=== PATIENT | female | born 1950 ===

== ENCOUNTER 2016-06-07 21:53 | Emergency (ER) | payer MEDICARE ==
[2016-06-07 22:17] VITALS: TEMP 98.3
[2016-06-07 22:54] LABS: BASO # 0.1 K/uL (0.0-0.2); BASO % 0.6 % (0.0-2.0); EOS # 0.2 K/uL (0.0-0.7); EOS % 2.1 % (0.0-4.0); HEMATOCRIT 42.1 % (34.0-47.0); LYMPH # 2.5 K/uL (1.0-4.3); LYMPH % 26.2 % (20.0-40.0); MEAN CELL VOLUME 89.6 fl (81.0-99.0); MEAN CORPUSCULAR HEMOGLOBIN 29.2 pg (27.0-31.0); MEAN CORPUSCULAR HGB CONC 32.6 g/dL (33.0-37.0); MEAN PLATELET VOLUME 9.1 fl (7.2-11.7); MONO # 0.5 K/uL (0.0-0.8); MONO % 5.1 % (0.0-10.0); NEUT # 6.2 K/uL (1.8-7.0); NRBC % 0.1 % (0.0-0.0); RED CELL DISTRIBUTION WIDTH 14.3 % (11.5-14.5); WHITE BLOOD COUNT 9.4 K/uL (4.8-10.8)
[2016-06-07 23:00] VITALS: PULSE 60; RESP 18; O2SAT 98
[2016-06-07 23:00] LABS: ALB/GLOB RATIO 1.2 (1.0-2.1); ALKALINE PHOSPHATASE 116 U/L (38-126); ALT/SGPT 23 U/L (9-52); AST/SGOT 23 U/L (14-36); BILIRUBIN,TOTAL 0.4 mg/dl (0.2-1.3); BLOOD UREA NITROGEN 19 mg/dl (7-17); CALCIUM 8.9 mg/dL (8.4-10.2); CARBON DIOXIDE 27 mmol/L (22-30); CHLORIDE 103 mmol/L (98-107); GFR AFRICAN-AMERICAN > 60; GLUCOSE,RANDOM 119 mg/dL (65-105); POTASSIUM 3.4 MMOL/L (3.6-5.0); SODIUM 143 mmol/l (132-148); TOTAL PROTEIN 7.5 G/DL (6.3-8.2)
--- NOTE | 2016-06-07 23:09 | ED PDOC ---
Syncope/Near Syncope/Dizzyness Time Seen by Provider: 06/07/16 22:22 Chief Complaint (Nursing): Weakness/Neurological Deficit Chief Complaint (Provider): Fall/Head Injury History Per: Patient History/Exam Limitations: no limitations Onset/Duration Of Symptoms: Hrs Additional Complaint(s): 22:22 Ly Oscar is a 65 year old female with a history of atrial fibrillation, asthma, hypertension, COPD, arthritis, and gastritis that presents to the ED s/p fall. Patients states that she felt dizzy and fell as a result, at which point she hit her head on the wall. She reports that she initially experienced mild numbness to the tongue, but that it has since resolved. She denies any nausea, vomiting, chest pain, fever, shortness of breath, cough, or diarrhea, but does states that she has a mild headache. She denies having any palpitations during or before incident. Past Medical History Reviewed: Historical Data, Nursing Documentation, Vital Signs Vital Signs: Last Vital Signs Temp 98.3 F 06/07/16 22:15 Pulse 60 06/07/16 22:35 Resp 18 06/07/16 22:35 BP 152/69 H 06/07/16 22:35 Pulse Ox 98 06/07/16 22:35 - Medical History PMH: Arthritis, Asthma, Atrial Fibrillation (s/p ablation), Cardia Arrhythmia, Emphysema, Gastritis, Gastrointestinal Ulcer, HTN, Hypercholesterolemia, Hyperthyroidism Denies: Chronic Kidney Disease - Surgical History Surgical History: Appendectomy, Cholecystectomy, - Family History Family History: States: Unknown Family Hx - Immunization History Hx Tetanus Toxoid Vaccination: No Hx Influenza Vaccination: Yes Hx Pneumococcal Vaccination: Yes - Home Medications Home Medications: Ambulatory Orders Medication Instructions Recorded Aspirin [Ecotrin] 81 mg PO DAILY #30 ect 08/12/14 Metoprolol Succinate [Toprol XL] 100 mg PO DAILY #30 tab 08/12/14 Valsartan [Diovan] 80 mg PO DAILY #30 cap 08/12/14 Flecainide [Tambocor] 100 mg PO BID 09/18/14 Fluticasone Furoate [Arnuity 11/07/14 Ellipta] Cyclobenzaprine [Cyclobenzaprine 10 mg PO BID #14 tab 10/01/15 HCl] oxyCODONE/Acetaminophen [Percocet 1 ea PO Q6 PRN #10 tab 02/06/17 5/325 mg Tab] Famotidine [Pepcid] 20 mg PO BID #28 tab 04/27/16 - Allergies Allergies/Adverse Reactions: Allergies Allergy/AdvReac Type Severity Reaction Status Date / Time iodine Allergy ANAPHYLAXIS Verified 06/07/16 22:18 lactose Allergy ANGIOEDEMA Verified 06/07/16 22:18 Penicillins Allergy ANAPHYLAXIS Verified 06/07/16 22:18 Review of Systems Constitutional: Negative for: Fever Cardiovascular: Negative for: Chest Pain Respiratory: Negative for: Cough, Shortness of Breath Gastrointestinal: Negative for: Nausea, Vomiting, Diarrhea Neurological: Positive for: Headache (mild) Physical Exam - Reviewed Nursing Documentation Reviewed: Yes Vital Signs Reviewed: Yes - Physical Exam Appears: Positive for: Non-toxic, No Acute Distress Head Exam: Positive for: ATRAUMATIC, NORMOCEPHALIC Skin: Positive for: Normal Color, Warm Eye Exam: Positive for: Normal appearance, EOMI Cardiovascular/Chest: Positive for: Regular Rate, Rhythm. Negative for: Murmur Respiratory: Positive for: Normal Breath Sounds. Negative for: Respiratory Distress Gastrointestinal/Abdominal: Positive for: Soft. Negative for: Tenderness Extremity: Positive for: Normal ROM Neurologic/Psych: Positive for: Alert, Oriented - Laboratory Results Result Diagrams: 06/07/16 22:36 06/07/16 22:36 - ECG O2 Sat by Pulse Oximetry: 98 (RA) Pulse Ox Interpretation: Normal Medical Decision Making Medical Decision Makin:30 Initial Impression: 65 y/o female s/p fall and head injury Initial Plan: * CT Head w/o contrast * EKG * CBC * PTT * PT * Accucheck * Reevaluation Labs reviewed demonstrate no clinically significant abnormalities Patient remains asymptomatic in ED. she is stable on dc Dx Dizziness, Head Injury FU PCP 2 days Scribe Attestation: Documented by Carmen Buckley, acting as a scribe for Luke Kaur MD Provider Scribe Attestation: All medical record entries made by the Scribe were at my direction and personally dictated by me. I have reviewed the chart and agree that the record accurately reflects my personal performance of the history, physical exam, medical decision making, and the department course for this patient. I have also personally directed, reviewed, and agree with the discharge instructions and disposition. Disposition - Clinical Impression Clinical Impression: Dizziness - Patient ED Disposition Is Patient to be Admitted: No - Disposition Disposition: Routine/Home Disposition Time: 01:00 Condition: STABLE
[2016-06-07 23:13] LABS: PARTIAL THROMBOPLASTIN TIME 29.8 SECONDS (23.3-32.5)
--- NOTE | 2016-06-08 01:11 | CT ---
EXAM: CT Head Without Intravenous Contrast. CLINICAL HISTORY: 65 years old, female; Pain; Headache; Tension TECHNIQUE: Axial computed tomography images of the head/brain without intravenous contrast. This CT exam was performed using one or more of the following dose reduction techniques: automated exposure control, adjustment of the mA and/or kV according to patient size, and/or use of iterative reconstruction technique. Coronal and sagittal reformatted images were created and reviewed. COMPARISON: No relevant prior studies available. FINDINGS: Brain: No hemorrhage. No edema. Bilateral periventricular white matter hypoattenuation most consistent with chronic ischemic small vessel changes. Hypoattenuating focus in the right cerebellum, question prior infarct. Prominence of cisterna magna. Streak artifact limits evaluation of of the inferior brain. Ventricles: No hydrocephalus. Bones: Skull is intact. Sinuses: No acute sinusitis. Mastoid air cells: No mastoid effusion. IMPRESSION: No CT evidence of acute intracranial abnormality. Chronic changes as above.
[2016-06-08 02:02] VITALS: BP 153/93
--- NOTE | 2016-06-08 10:47 | CARD ---
APPROVED REPORT EKG Measurement Heart [id number] <Conclusion> Sinus rhythm with 1st degree AV block Otherwise normal ECG
== END 2016-06-08 02:02 | disposition home or self-care (01) ==
LOC: H.ER 21:53
DX: R42 Dizziness and giddiness (principal); S09.90XA Unspecified injury of head, initial encounter; W19.XXXA Unspecified fall, initial encounter; Y92.89 Other specified places as the place of occurrence of the external cause; E78.00 Pure hypercholesterolemia, unspecified; I10 Essential (primary) hypertension; Z79.82 Long term (current) use of aspirin

== ENCOUNTER 2017-02-21 16:17 | Observation (INO) | payer MEDICARE ==
[2017-02-21 17:57] LABS: BASO # 0.1 K/uL (0.0-0.2); BASO % 0.8 % (0.0-2.0); EOS # 0.2 K/uL (0.0-0.7); EOS % 1.9 % (0.0-4.0); HEMATOCRIT 43.6 % (34.0-47.0); LYMPH # 2.2 K/uL (1.0-4.3); LYMPH % 22.2 % (20.0-40.0); MEAN CELL VOLUME 89.6 fl (81.0-99.0); MEAN CORPUSCULAR HGB CONC 32.4 g/dL (33.0-37.0); MEAN PLATELET VOLUME 9.5 fl (7.2-11.7); MONO # 0.6 K/uL (0.0-0.8); MONO % 6.2 % (0.0-10.0); NEUT # 6.8 K/uL (1.8-7.0); NEUT % 68.9 % (50.0-75.0); NRBC % 0.5 % (0.0-0.0); RED CELL DISTRIBUTION WIDTH 14.5 % (11.5-14.5); WHITE BLOOD COUNT 9.9 K/uL (4.8-10.8)
[2017-02-21 18:06] LABS: CALCIUM 9.6 mg/dL (8.4-10.2); CARBON DIOXIDE 28 mmol/L (22-30); CHLORIDE 105 mmol/L (98-107); GFR AFRICAN-AMERICAN > 60; GLUCOSE,RANDOM 92 mg/dL (65-105); SODIUM 142 mmol/l (132-148)
[2017-02-21 18:16] LABS: ALB/GLOB RATIO 1.2 (1.0-2.1); ALKALINE PHOSPHATASE 113 U/L (38-126); ALT/SGPT 30 U/L (9-52); AST/SGOT 31 U/L (14-36); BLOOD UREA NITROGEN 20 mg/dl (7-17); POTASSIUM 4.9 MMOL/L (3.6-5.0); TOTAL PROTEIN 7.8 G/DL (6.3-8.2)
--- NOTE | 2017-02-21 18:32 | ED PDOC ---
HPI: General Adult Time Seen by Provider: 02/21/17 17:01 Chief Complaint (Nursing): Chest Pain History Per: Patient Additional Complaint(s): Pt. states for the past 3 days she's had non-radiating mid-sternal chest pain. Reports pain is constant but gets worse spontaneously. States that at 0300 this morning the chest pain woke her up from sleep. Pt. states her 3 days ago. Reports that she initially thought it was due to anxiety but there are moments when she is completely relaxed and pain is still present. Denies numbness, tingling, trauma, fever, cough, SOB, back pain. Of note, pt. was seen by Dr. Dorman earlier today and instructed to come to ED for further evaluation. Past Medical History Reviewed: Historical Data, Nursing Documentation, Vital Signs Vital Signs: Last Vital Signs Temp 98 F 02/21/17 16:22 Pulse 67 02/21/17 20:05 Resp 16 02/21/17 16:22 BP 147/77 02/21/17 16:22 Pulse Ox 96 02/21/17 20:05 - Medical History PMH: Arthritis, Asthma, Atrial Fibrillation (s/p ablation), Cardia Arrhythmia, Emphysema, Gastritis, Gastrointestinal Ulcer, HTN, Hypercholesterolemia, Hyperthyroidism Denies: Chronic Kidney Disease - Surgical History Surgical History: Appendectomy, Cholecystectomy, - Family History Family History: States: No Known Family Hx - Immunization History Hx Tetanus Toxoid Vaccination: No Hx Influenza Vaccination: Yes Hx Pneumococcal Vaccination: Yes - Home Medications Home Medications: Ambulatory Orders Medication Instructions Recorded Albuterol HFA [Ventolin HFA 90 2 puff IH Q4H PRN 02/21/17 mcg/actuation (8 g)] Famotidine [Pepcid] 20 mg PO DAILY PRN 02/21/17 Flecainide Acetate [Flecainide 150 mg PO Q12H 02/21/17 Acetate] Fluticasone/Vilanterol [Breo 1 puff IH DAILY 02/21/17 Ellipta 200-25 Mcg INH] Metoprolol Succinate [Toprol XL] 100 mg PO DAILY 02/21/17 Montelukast [Singulair] 10 mg PO HS 02/21/17 Valsartan [Diovan] 160 mg PO DAILY 02/21/17 amLODIPine [Norvasc] 5 mg PO HS 02/21/17 - Allergies Allergies/Adverse Reactions: Allergies Allergy/AdvReac Type Severity Reaction Status Date / Time iodine Allergy ANAPHYLAXIS Verified 02/21/17 16:22 lactose Allergy ANGIOEDEMA Verified 02/21/17 16:22 Review of Systems ROS Statement: Except As Marked, All Systems Reviewed And Found Negative Cardiovascular: Positive for: Chest Pain Physical Exam - Reviewed Nursing Documentation Reviewed: Yes Vital Signs Reviewed: Yes - Physical Exam Appears: Positive for: Well, Non-toxic, No Acute Distress Head Exam: Positive for: ATRAUMATIC, NORMAL INSPECTION, NORMOCEPHALIC Skin: Positive for: Normal Color, Warm. Negative for: Rash Eye Exam: Positive for: EOMI, Normal appearance, PERRL ENT: Positive for: Normal ENT Inspection Neck: Positive for: Normal, Painless ROM Cardiovascular/Chest: Positive for: Regular Rate, Rhythm Respiratory: Positive for: CNT, Normal Breath Sounds Gastrointestinal/Abdominal: Positive for: Normal Exam, Bowel Sounds, Soft. Negative for: Tenderness Back: Positive for: Normal Inspection Extremity: Positive for: Normal ROM Neurologic/Psych: Positive for: Alert, Oriented. Negative for: Aphasia, Facial Droop - Laboratory Results Result Diagrams: 02/21/17 17:48 02/21/17 17:48 - ECG ECG: Positive for: Interpreted By Me ECG Rhythm: Positive for: Sinus Rhythm. Negative for: ST/T Changes Rate: 67 O2 Sat by Pulse Oximetry: 96 - Radiology X-Ray: Interpreted by Me (CXR) X-Ray Interpretation: No Acute Disease - Progress ED Course And Treament: Labs ordered. IV line established. ASA PO 324mg PO chew ordered. Call placed to Dr. Dorman. Case d/w Dr. Sung and arrangements made for 23 hr tele observation. Medical Decision Making Medical Decision Making: Due to patient's PMHx and continuing chest pain she will be placed on 23 hr observation. Disposition - Clinical Impression Clinical Impression: Chest pain - Patient ED Disposition Is Patient to be Admitted: Yes - Disposition Disposition Time: 06:30 Condition: STABLE Forms: [facility] (German) - Pt Status Changed To: Hospital Disposition Of: Observation
--- NOTE | 2017-02-21 18:32 | RAD ---
HISTORY: chest pain COMPARISON: 04/22/2016 FINDINGS: LUNGS: No active pulmonary disease. PLEURA: No significant pleural effusion identified, no pneumothorax apparent. CARDIOVASCULAR: Normal. OSSEOUS STRUCTURES: No significant abnormalities. VISUALIZED UPPER ABDOMEN: Normal. OTHER FINDINGS: None. IMPRESSION: No active disease.
[2017-02-21] MEDS ORDERED: Albuterol HFA 90 mcg/actuation (8 g) IH PRN (20:31)
--- NOTE | 2017-02-21 20:31 | CP.PCM.HP ---
History of Present Illness - History of Present Illness History of Present Illness: CC: Chest pain History via family members in [place] HPI: This is a 66 y/o female with MHx significant for A fib s/p ablation, HTN, COPD/asthma, and ?thyroid disease who presents with now 2 days of CP. She states that she had some chest pain yesterday while at a wake for her who recently . She was feeling somewhat anxious at the time. She did not want to go to the hospital at the time, thinking it was just anxiety. Last night at 3 AM however, she was awoken from sleep with CP and so today she went into see her PCP, and he sent her to ER for further w/u. Patient denies radiation of pain. Denies SOB. May have had some palpitations and lightheadedness yesterday. Patient denies any f/c/n/v/d. ROS: 14 pt. ROS negative other than what is in HPI. MHx: A fib, HTN, COPD/Asthma, ?Gastritis, ?Thyroid disease SHx: Ablation for a fib (02/2014), Thyroid surgery, hysterectomy, c-sec x 4, appendectomy, cholecystectomy Allergies: Iodine, PCN, Lactose, Tape Medications: see below; patient states no rate control or anticoagulants currently Family Hx: There is family history of CAD/ND in mother Social Hx: Lives with family, denies EtOH, denies tobacco Surrogate Dec maker: Montez Oscar, son, Present on Admission - Present on Admission Any Indicators Present on Admission: No Past Patient History - Past Medical History & Family History Past Medical History?: Yes - Past Social History Smoking Status: Never Smoked - CARDIAC Hx Atrial Fibrillation: Yes (s/p ablation) Hx Cardia Arrhythmia: Yes Hx Hypercholesterolemia: Yes Hx Hypertension: Yes - PULMONARY Hx Asthma: Yes Hx Emphysema: Yes - NEUROLOGICAL Hx Neurological Disorder: No - HEENT Other/Comment: wear glasses for poor vision - RENAL Hx Chronic Kidney Disease: No - ENDOCRINE/METABOLIC Hx Hyperthyroidism: Yes - HEMATOLOGICAL/ONCOLOGICAL Hx Blood Disorders: No - INTEGUMENTARY Hx Dermatological Problems: Yes Hx Psoriasis: Yes - MUSCULOSKELETAL/RHEUMATOLOGICAL Hx Arthritis: Yes - GASTROINTESTINAL Hx Gastritis: Yes - GENITOURINARY/GYNECOLOGICAL Hx Genitourinary Disorders: No - PSYCHIATRIC Hx Psychophysiologic Disorder: No Hx Substance Use: No - SURGICAL HISTORY Hx Appendectomy: Yes Hx Cholecystectomy: Yes - ANESTHESIA Hx Anesthesia: Yes Hx Anesthesia Reactions: No Hx Malignant Hyperthermia: No Meds Allergies/Adverse Reactions: Allergies Allergy/AdvReac Type Severity Reaction Status Date / Time iodine Allergy ANAPHYLAXIS Verified 02/21/17 16:22 lactose Allergy ANGIOEDEMA Verified 02/21/17 16:22 Physical Exam - Constitutional Appears: No Acute Distress - Head Exam Head Exam: ATRAUMATIC, NORMOCEPHALIC - Eye Exam Eye Exam: EOMI, PERRL - ENT Exam ENT Exam: Mucous Membranes Dry - Neck Exam Neck exam: Positive for: Full Rom - Respiratory Exam Respiratory Exam: Clear to Auscultation Bilateral, NORMAL BREATHING PATTERN - Cardiovascular Exam Cardiovascular Exam: REGULAR RHYTHM, +S1, +S2 - GI/Abdominal Exam GI & Abdominal Exam: Normal Bowel Sounds, Soft - Extremities Exam Extremities exam: Positive for: full ROM, normal inspection - Neurological Exam Neurological exam: Alert, CN II-XII Intact, Oriented x3 - Psychiatric Exam Psychiatric exam: Normal Affect, Normal Mood - Skin Skin Exam: Dry, Warm Results - Vital Signs Recent Vital Signs: Last Vital Signs Temp 98 F 02/21/17 16:22 Pulse 67 02/21/17 20:20 Resp 16 02/21/17 16:22 BP 147/77 02/21/17 16:22 Pulse Ox 96 02/21/17 20:20 - Labs Result Diagrams: 02/21/17 17:48 02/21/17 17:48 Labs: Laboratory Results - last 24 hr 02/21/17 02/21/17 02/21/17 17:48 17:48 17:48 WBC 9.9 RBC 4.87 Hgb 14.1 Hct 43.6 MCV 89.6 MCH 29.0 MCHC 32.4 L RDW 14.5 Plt Count 234 MPV 9.5 Neut % (Auto) 68.9 Lymph % (Auto) 22.2 [place] % (Auto) 6.2 Eos % (Auto) 1.9 Baso % (Auto) 0.8 Neut # 6.8 Lymph # 2.2 [place] # 0.6 Eos # 0.2 Baso # 0.1 APTT 42.7 H Sodium 142 Potassium 4.9 Chloride 105 Carbon Dioxide 28 Anion Gap 14 BUN 20 H Creatinine 0.8 Est GFR ( Amer) > 60 Est GFR (Non-Af Amer) > 60 Random Glucose 92 Calcium 9.6 Total Bilirubin 1.0 AST 31 ALT 30 Alkaline Phosphatase 113 Troponin I 0.0150 Total Protein 7.8 Albumin 4.3 Globulin 3.5 Albumin/Globulin Ratio 1.2 - Imaging and Cardiology Chest x-ray Status: Image reviewed by me (no acute findings) Assessment & Plan (1) Chest pain Assessment and Plan: 66 y/o female with A fib and HTN among other conditions, presenting with CP. 1) Chest pain -Tele obs -Serial trops -AM EKG -Echo in AM -Consult Dr. Ramirez in AM -ASA 325 daily, SLNG for CP 2) A fib -Continue fleccanide (patient's own) -Cont metoprolol 3) HTN -- cont home BP medications 4) DVT PPx -- SQ Lovenox Status: Acute (2) A-fib Status: Acute (3) HTN (hypertension) Status: Chronic (4) DVT prophylaxis Status: Acute
[2017-02-21] MEDS: FLECAINIDE ACETATE 150 MG PO SCH (22:13)
[2017-02-21] MEDS ORDERED: Nitroglycerin 2% Ointment Foilpak UD TOP STA (23:09)
[2017-02-22 06:38] VITALS: PULSE 57
[2017-02-22 07:44] LABS: BASO % 0.4 % (0.0-2.0); EOS # 0.2 K/uL (0.0-0.7); EOS % 2.2 % (0.0-4.0); LYMPH # 2.1 K/uL (1.0-4.3); LYMPH % 26.6 % (20.0-40.0); MEAN CELL VOLUME 89.3 fl (81.0-99.0); MEAN CORPUSCULAR HEMOGLOBIN 28.8 pg (27.0-31.0); MEAN CORPUSCULAR HGB CONC 32.2 g/dL (33.0-37.0); MONO # 0.6 K/uL (0.0-0.8); NEUT # 5.1 K/uL (1.8-7.0); NEUT % 63.8 % (50.0-75.0); NRBC % 0.1 % (0.0-0.0); RED CELL DISTRIBUTION WIDTH 14.5 % (11.5-14.5)
[2017-02-22 07:46] LABS: BLOOD UREA NITROGEN 15 mg/dl (7-17); CARBON DIOXIDE 29 mmol/L (22-30); CHLORIDE 103 mmol/L (98-107); CHOLESTEROL 186 mg/dL (0-199); GFR AFRICAN-AMERICAN > 60; GLUCOSE,RANDOM 92 mg/dL (65-105); POTASSIUM 3.4 MMOL/L (3.6-5.0); SODIUM 141 mmol/l (132-148)
[2017-02-22 08:21] VITALS: BP 133/72; RESP 20; TEMP 97.3; O2SAT 96
[2017-02-22] MEDS: FLECAINIDE ACETATE 150 MG PO SCH (08:55)
--- NOTE | 2017-02-22 08:58 | CARD ---
APPROVED REPORT EKG Measurement Heart [id number] <Conclusion> Normal sinus rhythm Normal ECG
[2017-02-22] MEDS ORDERED: Metoprolol Succinate 100 mg XL Tab PO SCH (09:00)
[2017-02-22] MEDS ORDERED: Fluticasone-Salmeterol 250-50mcg Diskus IH SCH (09:00)
[2017-02-22] MEDS ORDERED: Enoxaparin 40 mg Syringe SC SCH (09:00)
--- NOTE | 2017-02-22 09:59 | CP.PCM.CON ---
History of Present Illness - History of Present Illness History of Present Illness: patietn seen/examined. full consult to follow. negative cardiac enzymes. chest pain likely in the setting of grief due to of her . d/c home today and outpatient follow up. Past Patient History - Past Medical History & Family History Past Medical History?: Yes - Past Social History Smoking Status: Never Smoked - CARDIAC Hx Cardiac Disorders: Yes Hx Atrial Fibrillation: Yes (s/p ablation) Hx Cardia Arrhythmia: Yes Hx Hypercholesterolemia: Yes Hx Hypertension: Yes - PULMONARY Hx Respiratory Disorders: Yes Hx Asthma: Yes Hx Emphysema: Yes - NEUROLOGICAL Hx Neurological Disorder: No - HEENT Hx HEENT Problems: No - RENAL Hx Chronic Kidney Disease: No - ENDOCRINE/METABOLIC Hx Endocrine Disorders: Yes Hx Hyperthyroidism: Yes - HEMATOLOGICAL/ONCOLOGICAL Hx Blood Disorders: No - INTEGUMENTARY Hx Dermatological Problems: Yes Hx Psoriasis: Yes - MUSCULOSKELETAL/RHEUMATOLOGICAL Hx Musculoskeletal Disorders: Yes Hx Arthritis: Yes Hx Falls: Yes - GASTROINTESTINAL Hx Gastrointestinal Disorders: Yes Hx Gastritis: Yes Hx Ulcer: Yes - GENITOURINARY/GYNECOLOGICAL Hx Genitourinary Disorders: No - PSYCHIATRIC Hx Psychophysiologic Disorder: No Hx Substance Use: No - SURGICAL HISTORY Hx Surgeries: Yes Hx Appendectomy: Yes Hx Section: Yes Hx Cholecystectomy: Yes Other/Comment: s/p cardiac ablation - ANESTHESIA Hx Anesthesia: Yes Hx Anesthesia Reactions: No Hx Malignant Hyperthermia: No Meds Allergies/Adverse Reactions: Allergies Allergy/AdvReac Type Severity Reaction Status Date / Time iodine Allergy ANAPHYLAXIS Verified 02/21/17 16:22 lactose Allergy ANGIOEDEMA Verified 02/21/17 16:22 - Medications Medications: Current Medications Acetaminophen (Tylenol 325mg Tab) 650 mg PO Q6 PRN PRN Reason: Headache Last Admin: 02/22/17 02:24 Dose: 650 mg Albuterol (Ventolin Hfa 90 Mcg/Actuation (8 G)) 2 puff IH Q4H PRN PRN Reason: Shortness of Breath Amlodipine Besylate (Norvasc) 5 mg PO HS [facility] Last Admin: 02/21/17 22:14 Dose: 5 mg Aspirin (Aspirin) 325 mg PO DAILY [facility] Last Admin: 02/22/17 08:56 Dose: 325 mg Enoxaparin Sodium (Lovenox) 40 mg SC DAILY [facility] PRN Reason: Protocol Last Admin: 02/22/17 08:53 Dose: 40 mg Famotidine (Pepcid) 20 mg PO DAILY PRN PRN Reason: Heartburn Last Admin: 02/22/17 08:54 Dose: 20 mg Home Med (Flecainide Acetate [Flecainide Acetate]) 150 mg PO Q12 [facility] Last Admin: 02/22/17 08:55 Dose: 150 mg Metoprolol Succinate (Toprol Xl) 100 mg PO DAILY [facility] Last Admin: 02/22/17 08:53 Dose: 100 mg Montelukast Sodium (Singulair) 10 mg PO HS [facility] Last Admin: 02/21/17 22:14 Dose: 10 mg Nitroglycerin (Nitrostat Sl Tab) 0.4 mg SL Q5M PRN PRN Reason: chest pain Fluticasone/Salmeterol (Advair Diskus 250/50) 1 puff IH Q12 [facility] Last Admin: 02/22/17 08:52 Dose: 1 puff Valsartan (Diovan) 160 mg PO DAILY [facility] Last Admin: 02/22/17 08:53 Dose: 160 mg Results - Vital Signs Recent Vital Signs: Last Vital Signs Temp 97.3 F L 02/22/17 08:21 Pulse 57 L 02/22/17 08:53 Resp 20 02/22/17 08:21 BP 133/72 02/22/17 08:53 Pulse Ox 96 02/22/17 08:21 - Labs Result Diagrams: 02/22/17 05:30 02/22/17 05:30 Labs: Laboratory Results - last 24 hr 02/21/17 02/21/17 02/21/17 17:48 17:48 17:48 WBC 9.9 RBC 4.87 Hgb 14.1 Hct 43.6 MCV 89.6 MCH 29.0 MCHC 32.4 L RDW 14.5 Plt Count 234 MPV 9.5 Neut % (Auto) 68.9 Lymph % (Auto) 22.2 [place] % (Auto) 6.2 Eos % (Auto) 1.9 Baso % (Auto) 0.8 Neut # 6.8 Lymph # 2.2 [place] # 0.6 Eos # 0.2 Baso # 0.1 APTT 42.7 H Sodium 142 Potassium 4.9 Chloride 105 Carbon Dioxide 28 Anion Gap 14 BUN 20 H Creatinine 0.8 Est GFR ( Amer) > 60 Est GFR (Non-Af Amer) > 60 Random Glucose 92 Calcium 9.6 Total Bilirubin 1.0 AST 31 ALT 30 Alkaline Phosphatase 113 Troponin I 0.0150 Total Protein 7.8 Albumin 4.3 Globulin 3.5 Albumin/Globulin Ratio 1.2 Triglycerides Cholesterol LDL Cholesterol Direct HDL Cholesterol 02/22/17 02/22/17 05:30 05:30 WBC 8.0 RBC 4.70 Hgb 13.5 Hct 42.0 MCV 89.3 MCH 28.8 MCHC 32.2 L RDW 14.5 Plt Count 217 MPV 9.0 Neut % (Auto) 63.8 Lymph % (Auto) 26.6 [place] % (Auto) 7.0 Eos % (Auto) 2.2 Baso % (Auto) 0.4 Neut # 5.1 Lymph # 2.1 [place] # 0.6 Eos # 0.2 Baso # 0.0 APTT Sodium 141 Potassium 3.4 L Chloride 103 Carbon Dioxide 29 Anion Gap 12 BUN 15 Creatinine 0.7 Est GFR ( Amer) > 60 Est GFR (Non-Af Amer) > 60 Random Glucose 92 Calcium 9.0 Total Bilirubin AST ALT Alkaline Phosphatase Troponin I < 0.0120 Total Protein Albumin Globulin Albumin/Globulin Ratio Triglycerides 99 Cholesterol 186 LDL Cholesterol Direct 72 HDL Cholesterol 78 H
--- NOTE | 2017-02-22 10:00 | CP.PCM.CON ---
Past Patient History - Past Medical History & Family History Past Medical History?: Yes - Past Social History Smoking Status: Never Smoked - CARDIAC Hx Cardiac Disorders: Yes Hx Atrial Fibrillation: Yes (s/p ablation) Hx Cardia Arrhythmia: Yes Hx Hypercholesterolemia: Yes Hx Hypertension: Yes - PULMONARY Hx Respiratory Disorders: Yes Hx Asthma: Yes Hx Emphysema: Yes - NEUROLOGICAL Hx Neurological Disorder: No - HEENT Hx HEENT Problems: No - RENAL Hx Chronic Kidney Disease: No - ENDOCRINE/METABOLIC Hx Endocrine Disorders: Yes Hx Hyperthyroidism: Yes - HEMATOLOGICAL/ONCOLOGICAL Hx Blood Disorders: No - INTEGUMENTARY Hx Dermatological Problems: Yes Hx Psoriasis: Yes - MUSCULOSKELETAL/RHEUMATOLOGICAL Hx Musculoskeletal Disorders: Yes Hx Arthritis: Yes Hx Falls: Yes - GASTROINTESTINAL Hx Gastrointestinal Disorders: Yes Hx Gastritis: Yes Hx Ulcer: Yes - GENITOURINARY/GYNECOLOGICAL Hx Genitourinary Disorders: No - PSYCHIATRIC Hx Psychophysiologic Disorder: No Hx Substance Use: No - SURGICAL HISTORY Hx Surgeries: Yes Hx Appendectomy: Yes Hx Section: Yes Hx Cholecystectomy: Yes Other/Comment: s/p cardiac ablation - ANESTHESIA Hx Anesthesia: Yes Hx Anesthesia Reactions: No Hx Malignant Hyperthermia: No Meds Allergies/Adverse Reactions: Allergies Allergy/AdvReac Type Severity Reaction Status Date / Time iodine Allergy ANAPHYLAXIS Verified 02/21/17 16:22 lactose Allergy ANGIOEDEMA Verified 02/21/17 16:22 - Medications Medications: Current Medications Acetaminophen (Tylenol 325mg Tab) 650 mg PO Q6 PRN PRN Reason: Headache Last Admin: 02/22/17 02:24 Dose: 650 mg Albuterol (Ventolin Hfa 90 Mcg/Actuation (8 G)) 2 puff IH Q4H PRN PRN Reason: Shortness of Breath Amlodipine Besylate (Norvasc) 5 mg PO HS [facility] Last Admin: 02/21/17 22:14 Dose: 5 mg Aspirin (Aspirin) 325 mg PO DAILY [facility] Last Admin: 02/22/17 08:56 Dose: 325 mg Enoxaparin Sodium (Lovenox) 40 mg SC DAILY [facility] PRN Reason: Protocol Last Admin: 02/22/17 08:53 Dose: 40 mg Famotidine (Pepcid) 20 mg PO DAILY PRN PRN Reason: Heartburn Last Admin: 02/22/17 08:54 Dose: 20 mg Home Med (Flecainide Acetate [Flecainide Acetate]) 150 mg PO Q12 [facility] Last Admin: 12/09/17 08:55 Dose: 150 mg Metoprolol Succinate (Toprol Xl) 100 mg PO DAILY [facility] Last Admin: 02/22/17 08:53 Dose: 100 mg Montelukast Sodium (Singulair) 10 mg PO HS [facility] Last Admin: 02/21/17 22:14 Dose: 10 mg Nitroglycerin (Nitrostat Sl Tab) 0.4 mg SL Q5M PRN PRN Reason: chest pain Fluticasone/Salmeterol (Advair Diskus 250/50) 1 puff IH Q12 [facility] Last Admin: 02/22/17 08:52 Dose: 1 puff Valsartan (Diovan) 160 mg PO DAILY [facility] Last Admin: 02/22/17 08:53 Dose: 160 mg Results - Vital Signs Recent Vital Signs: Last Vital Signs Temp 97.3 F L 02/22/17 08:21 Pulse 57 L 02/22/17 08:53 Resp 20 02/22/17 08:21 BP 133/72 02/22/17 08:53 Pulse Ox 96 02/22/17 08:21 - Labs Result Diagrams: 02/22/17 05:30 02/22/17 05:30 Labs: Laboratory Results - last 24 hr 02/21/17 02/21/17 02/21/17 17:48 17:48 17:48 WBC 9.9 RBC 4.87 Hgb 14.1 Hct 43.6 MCV 89.6 MCH 29.0 MCHC 32.4 L RDW 14.5 Plt Count 234 MPV 9.5 Neut % (Auto) 68.9 Lymph % (Auto) 22.2 [place] % (Auto) 6.2 Eos % (Auto) 1.9 Baso % (Auto) 0.8 Neut # 6.8 Lymph # 2.2 [place] # 0.6 Eos # 0.2 Baso # 0.1 APTT 42.7 H Sodium 142 Potassium 4.9 Chloride 105 Carbon Dioxide 28 Anion Gap 14 BUN 20 H Creatinine 0.8 Est GFR ( Amer) > 60 Est GFR (Non-Af Amer) > 60 Random Glucose 92 Calcium 9.6 Total Bilirubin 1.0 AST 31 ALT 30 Alkaline Phosphatase 113 Troponin I 0.0150 Total Protein 7.8 Albumin 4.3 Globulin 3.5 Albumin/Globulin Ratio 1.2 Triglycerides Cholesterol LDL Cholesterol Direct HDL Cholesterol 02/22/17 02/22/17 05:30 05:30 WBC 8.0 RBC 4.70 Hgb 13.5 Hct 42.0 MCV 89.3 MCH 28.8 MCHC 32.2 L RDW 14.5 Plt Count 217 MPV 9.0 Neut % (Auto) 63.8 Lymph % (Auto) 26.6 [place] % (Auto) 7.0 Eos % (Auto) 2.2 Baso % (Auto) 0.4 Neut # 5.1 Lymph # 2.1 [place] # 0.6 Eos # 0.2 Baso # 0.0 APTT Sodium 141 Potassium 3.4 L Chloride 103 Carbon Dioxide 29 Anion Gap 12 BUN 15 Creatinine 0.7 Est GFR ( Amer) > 60 Est GFR (Non-Af Amer) > 60 Random Glucose 92 Calcium 9.0 Total Bilirubin AST ALT Alkaline Phosphatase Troponin I < 0.0120 Total Protein Albumin Globulin Albumin/Globulin Ratio Triglycerides 99 Cholesterol 186 LDL Cholesterol Direct 72 HDL Cholesterol 78 H
--- NOTE | 2017-02-22 10:51 | CP.PCM.DIS ---
Provider - Provider Date of Admission: 02/21/17 20:32 Attending physician: Sola Sung MD Consults: Dr. Ramirez- cardiology Time Spent in preparation of Discharge (in minutes): 25 Hospital Course - Lab Results Lab Results: Most Recent Lab Values WBC 8.0 K/uL (4.8-10.8) 02/22/17 05:30 RBC 4.70 Mil/uL (3.80-5.20) 02/22/17 05:30 Hgb 13.5 g/dL (12.0-16.0) 02/22/17 05:30 Hct 42.0 % (34.0-47.0) 02/22/17 05:30 MCV 89.3 fl (81.0-99.0) 02/22/17 05:30 MCH 28.8 pg (27.0-31.0) 02/22/17 05:30 MCHC 32.2 g/dL (33.0-37.0) L 02/22/17 05:30 RDW 14.5 % (11.5-14.5) 02/22/17 05:30 Plt Count 217 K/uL (130-400) 02/22/17 05:30 MPV 9.0 fl (7.2-11.7) 02/22/17 05:30 Neut % (Auto) 63.8 % (50.0-75.0) 02/22/17 05:30 Lymph % (Auto) 26.6 % (20.0-40.0) 02/22/17 05:30 [place] % (Auto) 7.0 % (0.0-10.0) 02/22/17 05:30 Eos % (Auto) 2.2 % (0.0-4.0) 02/22/17 05:30 Baso % (Auto) 0.4 % (0.0-2.0) 02/22/17 05:30 Neut # 5.1 K/uL (1.8-7.0) 02/22/17 05:30 Lymph # 2.1 K/uL (1.0-4.3) 02/22/17 05:30 [place] # 0.6 K/uL (0.0-0.8) 02/22/17 05:30 Eos # 0.2 K/uL (0.0-0.7) 02/22/17 05:30 Baso # 0.0 K/uL (0.0-0.2) 02/22/17 05:30 APTT 42.7 Seconds (25.6-37.1) H 02/21/17 17:48 Sodium 141 mmol/l (132-148) 02/22/17 05:30 Potassium 3.4 MMOL/L (3.6-5.0) L 02/22/17 05:30 Chloride 103 mmol/L (98-107) 02/22/17 05:30 Carbon Dioxide 29 mmol/L (22-30) 02/22/17 05:30 Anion Gap 12 (10-20) 02/22/17 05:30 BUN 15 mg/dl (7-17) 02/22/17 05:30 Creatinine 0.7 mg/dl (0.7-1.2) 02/22/17 05:30 Est GFR ( Amer) > 60 02/22/17 05:30 Est GFR (Non-Af Amer) > 60 02/22/17 05:30 Random Glucose 92 mg/dL (65-105) 02/22/17 05:30 Calcium 9.0 mg/dL (8.4-10.2) 02/22/17 05:30 Total Bilirubin 1.0 mg/dl (0.2-1.3) 02/21/17 17:48 AST 31 U/L (14-36) 02/21/17 17:48 ALT 30 U/L (9-52) 02/21/17 17:48 Alkaline Phosphatase 113 U/L (38-126) 02/21/17 17:48 Troponin I < 0.0120 ng/mL (0.00-0.120) 02/22/17 05:30 Total Protein 7.8 G/DL (6.3-8.2) 02/21/17 17:48 Albumin 4.3 g/dL (3.5-5.0) 02/21/17 17:48 Globulin 3.5 gm/dL (2.2-3.9) 02/21/17 17:48 Albumin/Globulin Ratio 1.2 (1.0-2.1) 02/21/17 17:48 Triglycerides 99 mg/DL (0-149) 02/22/17 05:30 Cholesterol 186 mg/dL (0-199) 02/22/17 05:30 LDL Cholesterol Direct 72 mg/dL (0-129) 02/22/17 05:30 HDL Cholesterol 78 MG/DL (30-70) H 02/22/17 05:30 - Hospital Course Hospital Course: This is a 66 year old female with a past medical history significant for paroxysmal atrial fibrillation status post ablation, with previous admission for rapid ventricular response, hypothyroidism, hypertension, asthma, COPD, who initially presented to the emergency department with 2 days of chest pain. The patient states that she had some chest pain yesterday while at her 's wake. She admits to a lot of anxiety and grief as a result of sepsis. At 3 AM yesterday, the patient was awoken from sleep with chest pain and to go see her primary care physician. Her PCP sent her to the emergency department for further workup. In the ED, the patient was given aspirin and was placed on cardiovascular lab director. Telemetry shows normal sinus rhythm. The patient was subsequently admitted to telemetry on observation. Her second troponin is undetectable. EKG is unremarkable. She is now chest pain free after nitroglycerin administration. Dr. Ramirez was consulted, her advertising statistical clerk, who saw her this morning. He states that given the second troponin is negative the patient is stable for discharge to home at this time as her chest pain was likely secondary to grief and anxiety. She is to follow-up with him within the week for further outpatient workup. She is to take her home medications as prescribed. 1) Chest pain- now resolved - Troponins negative x 2 -EKG unremarkable - Dr. Ramirez saw pt on consultation- patient stable for discharge home today with outpatient f/u. 2) A fib -Continue flecanide, home medication -Cont metoprolol- home medication 3) HTN -- cont home BP medications 4) Asthma/COPD- continue inhaler prn along with Advair Discharge Exam - Additional Findings Additional findings: Physical exam: Constitutional- cooperative, awake, alert. Head- NCAT, PERRL Eye- PERRL, normal accommodation ENT- normal exam, MMM. Neck- normal inspection, supple, no JVD Respiratory- CTAB, no wheezes rales rhonchi Cardiovascular- RRR, +S1, +S2 no MRG GI/Abdominal- normal bowel sounds, soft, no mass, no hsm Skin- warm, dry Extremities Exam- normal capillary refill, normal inspection Neurological Exam- alert, stable gait Psych- normal mood, normal affect Discharge Plan - Follow Up Plan Condition: STABLE Disposition: HOME/ ROUTINE
--- NOTE | 2017-02-22 12:10 | CARD ---
APPROVED REPORT EXAM: Two-dimensional and M-mode echocardiogram with Doppler and color Doppler. Other Information Quality : AverageRhythm : NSR INDICATION Chest Pain 2D DIMENSIONS IVSd0.91 (0.7-1.1cm)LVDd4.58 (3.9-5.9cm) LVOT Diameter2.04 (1.8-2.4cm)PWd0.81 (0.7-1.1cm) IVSs1.14 (0.8-1.2cm)LVDs3.47 (2.5-4.0cm) FS (%) 24.1 %PWs1.08 (0.8-1.2cm) M-Mode DIMENSIONS Left Atrium (MM)4.20 (2.5-4.0cm)IVSd1.39 (0.7-1.1cm) Aortic Root2.94 (2.2-3.7cm)LVDd5.79 (4.0-5.6cm) Aortic Cusp Exc.2.12 (1.5-2.0cm)PWd1.09 (0.7-1.1cm) IVSs1.46 cmFS (%) 38 % LVDs3.57 (2.0-3.8cm)PWs1.56 cm Mitral Valve MV E Mcsnrpqp643.8cm/sMV DECEL UNOA271msPE A Fbvtvhvm93.1cm/s MV POI84hpG/A ratio1.7MVA (PHT)2.42cm2 TDI Lateral E' Peak V11.16cm/sMedial E' Peak V8.23cm/sE/Lateral E'9.6 E/Medial E'13.0 Tricuspid Valve TR Peak Uokjskfj771pf/sRAP VVQURDNI86yyZjXW Peak Gr.38mmHg [id number] LEFT VENTRICLE The left ventricle is normal size in. There is normal left ventricular wall thickness. The left ventricular function is normal. The left ventricular ejection fraction is 65-70%. There is normal LV segmental wall motion. Transmitral Doppler flow pattern is Grade I-abnormal relaxation pattern. No left ventricle thrombus noted on this study. There is no ventricular septal defect visualized. There is no left ventricular aneurysm. There is no mass noted in the left ventricle. RIGHT VENTRICLE The right ventricle is normal size. There is normal right ventricular wall thickness. The right ventricular systolic function is normal. ATRIA The left atrium is mildly dilated. There is no thrombus suspected in the left atrium. The right atrium size is normal. There is a small mid interatrial septal defect with left to right flow on color doppler studies that appears to be a patent foramen ovale(PFO). The flow velocity accross this PFO is - 1.7 meters/second. AORTIC VALVE The aortic valve is normal in structure. There is trace aortic regurgitation. There is no aortic valvular stenosis. MITRAL VALVE The mitral valve is normal in structure. There is no evidence of mitral valve prolapse. There is no mitral valve stenosis. Mitral regurgitation is mild. TRICUSPID VALVE The tricuspid valve is normal in structure. There is moderate tricuspid regurgitation. Right ventricular systolic pressure is estimated at 48 mmHg. There is no tricuspid valve prolapse or vegetation. There is no tricuspid valve stenosis. PULMONIC VALVE The pulmonic valve is not well visualized. Doppler studies of the PV were not performed. GREAT VESSELS The aortic root is normal in size. The IVC was not well visualized. PERICARDIAL EFFUSION The pericardium appears normal. There is no pleural effusion. <Conclusion> The left ventricle is normal in size and wall thickness. The left ventricular function is normal. The left ventricular ejection fraction is 65-70%. The left atrium is mildly dilated. The mitral, aortic and tricuspid valves are normal. There is mild mitral regurgitation, trace aortic regurgitation and moderate tricuspid regurgitation. There is a small mid interatrial septal defect with left to right flow on color doppler studies that appears to be a patent foramen ovale(PFO). The flow velocity accross this PFO is - 1.7 meters/second.
== END 2017-02-22 11:43 | disposition home or self-care (01) ==
LOC: H.ER 16:17 → H.ERHOLD 20:32 → H.TEL 21:29
PROVIDERS: ADMIT Internal Medicine; ATTEND Internal Medicine
DX: R07.89 Other chest pain (principal); E03.9 Hypothyroidism, unspecified; I48.0 Paroxysmal atrial fibrillation; J43.9 Emphysema, unspecified; Z79.82 Long term (current) use of aspirin; Z79.899 Other long term (current) drug therapy; Z82.49 Family history of ischemic heart disease and other diseases of the circulatory system; Z87.11 Personal history of peptic ulcer disease; Z90.49 Acquired absence of other specified parts of digestive tract; Z90.710 Acquired absence of both cervix and uterus; E05.90 Thyrotoxicosis, unspecified without thyrotoxic crisis or storm; K29.70 Gastritis, unspecified, without bleeding; L40.9 Psoriasis, unspecified; M19.90 Unspecified osteoarthritis, unspecified site; R07.2 Precordial pain; E78.00 Pure hypercholesterolemia, unspecified; F41.9 Anxiety disorder, unspecified; H54.7 Unspecified visual loss; I10 Essential (primary) hypertension
CPT/HCPCS: 36415; 71010; 80048; 80053; 80061; 84484; 85025; 85730; 93005; 93306; 99285; G0378; J1650; J2270

== ENCOUNTER 2017-06-01 12:11 | Emergency (ER) | payer MEDICARE ==
[2017-06-01] MEDS ORDERED: Albuterol-Ipratrop 3 mg / 0.5 (3 ml) UD INH STA (13:23)
--- NOTE | 2017-06-01 14:08 | RAD ---
PROCEDURE: CHEST RADIOGRAPH, 1 VIEW HISTORY: dyspnea COMPARISON: 02/21/2017 FINDINGS: LUNGS: No new focal infiltrate. PLEURA: No pneumothorax or pleural fluid seen. CARDIOVASCULAR: Cardiomegaly. Aorta is unchanged. Trachea is midline. No hilar enlargement is seen. OSSEOUS STRUCTURES: No significant abnormalities. VISUALIZED UPPER ABDOMEN: Normal. OTHER FINDINGS: None. IMPRESSION: Cardiomegaly. No new focal infiltrate. No CHF.
[2017-06-01] MEDS ORDERED: Albuterol-Ipratrop 3 mg / 0.5 (3 ml) UD ONE (14:31)
[2017-06-01 14:36] LABS: BASO % 0.5 % (0.0-2.0); EOS # 0.1 K/uL (0.0-0.7); EOS % 1.6 % (0.0-4.0); HEMOGLOBIN 13.6 g/dL (12.0-16.0); LYMPH # 2.3 K/uL (1.0-4.3); LYMPH % 26.6 % (20.0-40.0); MEAN CORPUSCULAR HEMOGLOBIN 29.5 pg (27.0-31.0); MEAN CORPUSCULAR HGB CONC 33.1 g/dL (33.0-37.0); MEAN PLATELET VOLUME 9.2 fl (7.2-11.7); MONO # 0.5 K/uL (0.0-0.8); MONO % 5.3 % (0.0-10.0); NEUT # 5.7 K/uL (1.8-7.0); NRBC % 0.1 % (0.0-0.0); RBC 4.62 Mil/uL (3.80-5.20); RED CELL DISTRIBUTION WIDTH 13.7 % (11.5-14.5); WHITE BLOOD COUNT 8.6 K/uL (4.8-10.8)
[2017-06-01 14:44] LABS: BLOOD UREA NITROGEN 14 mg/dl (7-17); CALCIUM 9.4 mg/dL (8.4-10.2); GFR AFRICAN-AMERICAN > 60; GFR NON-AFRICAN AMERICAN > 60
[2017-06-01 14:56] LABS: B-TYPE NATRIURETIC PEPTIDE 104 pg/ml (0-900)
--- NOTE | 2017-06-01 15:05 | ED PDOC ---
HPI: Influenza Time Seen by Provider: 06/01/17 12:56 Chief Complaint: Cough, Cold, Congestion Past Medical History Vital Signs: Last Vital Signs Temp 98.8 F 06/01/17 12:37 Pulse 60 06/01/17 12:37 Resp 20 06/01/17 12:37 BP 153/88 H 06/01/17 12:37 Pulse Ox 96 06/01/17 12:37 - Medical History PMH: Arthritis, Asthma, Atrial Fibrillation (s/p ablation), Cardia Arrhythmia, Emphysema, Gastritis, Gastrointestinal Ulcer, HTN, Hypercholesterolemia, Hyperthyroidism Denies: Chronic Kidney Disease - Surgical History Surgical History: Appendectomy, Cholecystectomy, - Family History Family History: States: Unknown Family Hx - Immunization History Hx Tetanus Toxoid Vaccination: No Hx Influenza Vaccination: Yes Hx Pneumococcal Vaccination: Yes - Home Medications Home Medications: Ambulatory Orders Medication Instructions Recorded Albuterol HFA [Ventolin HFA 90 2 puff IH Q4H PRN 02/21/17 mcg/actuation (8 g)] Famotidine [Pepcid] 20 mg PO DAILY PRN 02/21/17 Flecainide Acetate 150 mg PO Q12H 02/21/17 Fluticasone/Vilanterol [Breo 1 puff IH DAILY 02/21/17 Ellipta 200-25 Mcg INH] Metoprolol Succinate [Toprol XL] 100 mg PO DAILY 02/21/17 Montelukast [Singulair] 10 mg PO HS 02/21/17 Valsartan [Diovan] 160 mg PO DAILY 02/21/17 amLODIPine [Norvasc] 5 mg PO HS 02/21/17 - Allergies Allergies/Adverse Reactions: Allergies Allergy/AdvReac Type Severity Reaction Status Date / Time iodine Allergy ANAPHYLAXIS Verified 02/21/17 16:22 lactose Allergy ANGIOEDEMA Verified 02/21/17 16:22 - Laboratory Results Result Diagrams: 06/01/17 14:25 06/01/17 14:25 - ECG O2 Sat by Pulse Oximetry: 96 Disposition - Disposition
[2017-06-01 15:42] VITALS: BP 132/74; PULSE 85; RESP 17; TEMP 98.3; O2SAT 100
--- NOTE | 2017-06-01 15:52 | ED PDOC ---
HPI: Asthma Time Seen by Provider: 06/01/17 12:56 Chief Complaint (Nursing): Cough, Cold, Congestion Chief Complaint (Provider): Difficulty Breathing and Congestion History Per: Patient History/Exam Limitations: no limitations Onset/Duration Of Symptoms: Other (x2 weeks) Current Symptoms Are (Timing): Still Present Associated Symptoms: Dyspnea, Cough. denies: Fever, Chest Pain Additional Complaint(s): 89 year old female with a past medical history of asthma presents to the emergency department complaining of difficulty breathing, cough and congestion x2 weeks. Patient reports that he has been on antibiotics and takes her albuterol very randomly. Denies chest pain. Patient states that she has also had some bilateral leg swelling but that is getting better. Denies fevers, chills. PMD: Odell Garcia - Asthma History Control Medications: See Home Medication List Past Medical History Reviewed: Historical Data, Nursing Documentation, Vital Signs Vital Signs: Last Vital Signs Temp 98.3 F 06/01/17 15:42 Pulse 85 06/01/17 15:42 Resp 17 06/01/17 15:42 BP 132/74 06/01/17 15:42 Pulse Ox 100 06/01/17 15:42 - Medical History PMH: Arthritis, Asthma, Atrial Fibrillation (s/p ablation), Cardia Arrhythmia, Emphysema, Gastritis, Gastrointestinal Ulcer, HTN, Hypercholesterolemia, Hyperthyroidism Denies: Chronic Kidney Disease - Surgical History Surgical History: Appendectomy, Cholecystectomy, - Family History Family History: States: Unknown Family Hx - Social History Current smoker - smoking cessation education provided: No Ex-Smoker (has not smoked in the last 12 months): No Alcohol: None Drugs: Denies - Immunization History Hx Tetanus Toxoid Vaccination: No Hx Influenza Vaccination: Yes Hx Pneumococcal Vaccination: Yes - Home Medications Home Medications: Ambulatory Orders Medication Instructions Recorded Albuterol HFA [Ventolin HFA 90 2 puff IH Q4H PRN 02/21/17 mcg/actuation (8 g)] Famotidine [Pepcid] 20 mg PO DAILY PRN 02/21/17 Flecainide Acetate 150 mg PO Q12H 02/21/17 Fluticasone/Vilanterol [Breo 1 puff IH DAILY 02/21/17 Ellipta 200-25 Mcg INH] Metoprolol Succinate [Toprol XL] 100 mg PO DAILY 02/21/17 Montelukast [Singulair] 10 mg PO HS 02/21/17 Valsartan [Diovan] 160 mg PO DAILY 02/21/17 amLODIPine [Norvasc] 5 mg PO HS 02/21/17 Albuterol 0.083% [Albuterol 3 ml IH Q4 PRN #20 neb 06/01/17 Sulfate 3 Ml] Prednisone [Deltasone] 60 mg PO DAILY 5 Days tablet 06/01/17 - Allergies Allergies/Adverse Reactions: Allergies Allergy/AdvReac Type Severity Reaction Status Date / Time iodine Allergy ANAPHYLAXIS Verified 02/21/17 16:22 lactose Allergy ANGIOEDEMA Verified 02/21/17 16:22 Review of Systems ROS Statement: Except As Marked, All Systems Reviewed And Found Negative Constitutional: Negative for: Fever, Chills Cardiovascular: Negative for: Chest Pain (chest congestion) Respiratory: Positive for: Cough, Other (difficulty breathing). Negative for: Shortness of Breath Musculoskeletal: Positive for: Other (bilateral leg swelling) Physical Exam - Reviewed Nursing Documentation Reviewed: Yes Vital Signs Reviewed: Yes - Physical Exam Appears: Positive for: Non-toxic, No Acute Distress Head Exam: Positive for: ATRAUMATIC, NORMAL INSPECTION, NORMOCEPHALIC Skin: Positive for: Normal Color, Warm, Dry. Negative for: Rash Eye Exam: Positive for: Normal appearance, EOMI, PERRL. Negative for: Nystagmus ENT: Positive for: Normal ENT Inspection. Negative for: Tonsillar Exudate, Tonsillar Swelling Neck: Positive for: Normal, Painless ROM, Supple Cardiovascular/Chest: Positive for: Regular Rate, Rhythm, Chest Non Tender. Negative for: Tachycardia Respiratory: Positive for: Normal Breath Sounds. Negative for: Rales, Rhonchi, Wheezing, Respiratory Distress Gastrointestinal/Abdominal: Positive for: Normal Exam, Bowel Sounds, Soft. Negative for: Tenderness, Guarding, Rebound Back: Positive for: Normal Inspection. Negative for: L CVA Tenderness, R CVA Tenderness Extremity: Positive for: Normal ROM. Negative for: Tenderness, Deformity, Swelling Neurologic/Psych: Positive for: Alert, Oriented, Gait - Laboratory Results Result Diagrams: 06/01/17 14:25 06/01/17 14:25 - ECG O2 Sat by Pulse Oximetry: 100 (RA) Pulse Ox Interpretation: Normal - Progress Re-evaluation Time: 14:35 Condition: Re-examined, Improved Medical Decision Making Medical Decision Makin Initial Impression Asthma exacerbation r/o CHF Initial Plan: * EKG * B-type * Natriuretic * Troponin * CBC * CXR * Albuterol 3mL INH * Blood Culture * Peak Flow pre/post * Reevaluation 1407 PROCEDURE: CHEST RADIOGRAPH, 1 VIEW HISTORY: dyspnea COMPARISON: 02/21/2017 FINDINGS: LUNGS: No new focal infiltrate. PLEURA: No pneumothorax or pleural fluid seen. CARDIOVASCULAR: Cardiomegaly. Aorta is unchanged. Trachea is midline. No hilar enlargement is seen. OSSEOUS STRUCTURES: No significant abnormalities. VISUALIZED UPPER ABDOMEN: Normal. OTHER FINDINGS: None. IMPRESSION: Cardiomegaly. No new focal infiltrate. No CHF. Reeval- 1445 Patient feels better after treatment and will be discharged home. Documented by Desi Garza acting as a scribe for Fara Rangel MD. All medical record entries made by the Scribe were at my direction and personally dictated by me. I have reviewed the chart and agree that the record accurately reflects my personal performance of the history, physical exam, medical decision making, and the department course for this patient. I have also personally directed, reviewed, and agree with the discharge instructions and disposition. Disposition - Clinical Impression Clinical Impression: Asthma - Patient ED Disposition Is Patient to be Admitted: No Counseled Patient/Family Regarding: Studies Performed, Diagnosis - Disposition Referrals: [facility] [Outside] Disposition: Routine/Home Disposition Time: 14:45 Condition: GOOD Additional Instructions: Take your medications as instructed. Follow up with your PCP in 2-3 days. Prescriptions: Albuterol 0.083% [Albuterol Sulfate 3 Ml] 3 ml IH Q4 PRN #20 neb PRN Reason: Wheezing Prednisone [Deltasone] 60 mg PO DAILY 5 Days tablet Instructions: Asthma, Adult (DC) Print Language: [place] - POA Present On Arrival: None
--- NOTE | 2017-06-02 07:32 | CARD ---
APPROVED REPORT EKG Measurement Heart [id number] <Conclusion> Sinus rhythm Prolonged QT Abnormal ECG
== END 2017-06-01 15:45 | disposition home or self-care (01) ==
LOC: H.ER 12:11
DX: J45.909 Unspecified asthma, uncomplicated (principal); I10 Essential (primary) hypertension; J43.9 Emphysema, unspecified; Z87.891 Personal history of nicotine dependence; E05.90 Thyrotoxicosis, unspecified without thyrotoxic crisis or storm
CPT/HCPCS: 71045; 80048; 83880; 84484; 85025; 87040; 93005; 94640; 96374; 99283; J2930

== ENCOUNTER 2017-12-01 10:35 | Emergency (ER) | payer MEDICAID, MEDICARE ==
--- NOTE | 2017-12-01 11:08 | ED PDOC ---
Lower Extremity Pain/Injury Time Seen by Provider: 12/01/17 10:53 Chief Complaint (Provider): left knee pain and swelling History Per: Patient History/Exam Limitations: no limitations Onset/Duration Of Symptoms: Days (x1) Current Symptoms Are (Timing): Still Present Additional Complaint(s): Ly Oscar is a 67 year old female, with a past medical history of HTN , who presents to the emergency department complaining of left knee pain and swelling s/p trip and fall on steps last night. Patient reports pain and difficulty ambulating. Patient states she also injured the right side of back but no complaints at present time. No further medical complaints PMD: None provided - Knee Description Of Injury: Fell Past Medical History Reviewed: Historical Data, Nursing Documentation, Vital Signs - Medical History PMH: Arthritis, Asthma, Atrial Fibrillation (s/p ablation), Cardia Arrhythmia, Emphysema, Gastritis, Gastrointestinal Ulcer, HTN, Hypercholesterolemia, Hyperthyroidism Denies: Chronic Kidney Disease - Surgical History Surgical History: Appendectomy, Cholecystectomy, - Family History Family History: States: Unknown Family Hx - Immunization History Hx Tetanus Toxoid Vaccination: No Hx Influenza Vaccination: Yes Hx Pneumococcal Vaccination: Yes - Home Medications Home Medications: Ambulatory Orders Medication Instructions Recorded Albuterol HFA [Ventolin HFA 90 2 puff IH Q4H PRN 02/21/17 mcg/actuation (8 g)] Famotidine [Pepcid] 20 mg PO DAILY PRN 02/21/17 Flecainide Acetate 150 mg PO Q12H 02/21/17 Fluticasone/Vilanterol [Breo 1 puff IH DAILY 02/21/17 Ellipta 200-25 Mcg INH] Metoprolol Succinate XL [Toprol XL] 100 mg PO DAILY 02/21/17 Montelukast [Singulair] 10 mg PO HS 02/21/17 Valsartan [Diovan] 160 mg PO DAILY 02/21/17 amLODIPine [Norvasc] 5 mg PO HS 02/21/17 Albuterol 0.083% [Albuterol 3 ml IH Q4 PRN #20 neb 06/01/17 Sulfate 3 Ml] Prednisone [Deltasone] 60 mg PO DAILY 5 Days tablet 06/01/17 Naproxen [Naprosyn] 500 mg PO Q12H #20 tab 09/17/18 - Allergies Allergies/Adverse Reactions: Allergies Allergy/AdvReac Type Severity Reaction Status Date / Time iodine Allergy ANAPHYLAXIS Verified 02/21/17 16:22 lactose Allergy ANGIOEDEMA Verified 02/21/17 16:22 Review of Systems ROS Statement: Except As Marked, All Systems Reviewed And Found Negative Musculoskeletal: Positive for: Leg Pain (left knee) Physical Exam - Reviewed Nursing Documentation Reviewed: Yes Vital Signs Reviewed: Yes - Physical Exam Appears: Positive for: No Acute Distress Head Exam: Positive for: ATRAUMATIC, NORMOCEPHALIC Skin: Positive for: Normal Color, Warm, Dry Eye Exam: Positive for: Normal appearance Neck: Positive for: Painless ROM Extremity: Positive for: Normal ROM (full ROM), Tenderness (left knee mild tenderness), Swelling (Left knee mild swelling). Negative for: Deformity (left knee) Neurologic/Psych: Positive for: Alert, Oriented. Negative for: Motor/Sensory Deficits Medical Decision Making Medical Decision Making: Time: 10:53 Initial Plan: --Knee 3 views LT [RAD] --Reevaluation ----- Scribe Attestation: Documented by Frankie Del Toro, acting as a scribe for Jalen Logan MD. Provider Scribe Attestation: All medical record entries made by the Scribe were at my direction and personally dictated by me. I have reviewed the chart and agree that the record accurately reflects my personal performance of the history, physical exam, medical decision making, and the department course for this patient. I have also personally directed, reviewed, and agree with the discharge instructions and disposition. Disposition - Clinical Impression Clinical Impression: Knee sprain - Patient ED Disposition Is Patient to be Admitted: No Counseled Patient/Family Regarding: Studies Performed, Diagnosis, Need For Followup, Rx Given - Disposition Referrals: Leah Choi MD [Staff Provider] - Disposition: Routine/Home Disposition Time: 12:05 Condition: FAIR Prescriptions: Naproxen [Naprosyn] 500 mg PO Q12H #20 tab Instructions: Knee Sprain (DC) Print Language: GHANAIAN
[2017-12-01 11:49] VITALS: RESP 17
--- NOTE | 2017-12-01 11:57 | RAD ---
Date of service: 12/01/2017 PROCEDURE: Left Knee Radiographs. HISTORY: Posttraumatic left knee pain. COMPARISON: None. FINDINGS: BONES: Normal. No fracture. JOINTS: Normal. No osteoarthritis. JOINT EFFUSION: None. OTHER FINDINGS: None. IMPRESSION: No acute findings related to/accounting for the clinical presentation.
[2017-12-01 13:37] VITALS: BP 149/72; PULSE 60; TEMP 98.3; O2SAT 97
== END 2017-12-01 13:36 | disposition home or self-care (01) ==
LOC: H.ER 10:35
DX: S83.92XA Sprain of unspecified site of left knee, initial encounter (principal); W10.9XXA Fall (on) (from) unspecified stairs and steps, initial encounter

== ENCOUNTER 2018-04-06 18:22 | Observation (INO) | payer MEDICARE, OTHER ==
--- NOTE | 2018-04-06 19:08 | ED PDOC ---
HPI: Chest Pain Time Seen by Provider: 04/06/18 18:47 Chief Complaint (Nursing): Chest Pain Chief Complaint (Provider): chest pain History Per: Patient History/Exam Limitations: no limitations Additional Complaint(s): 67 y/o F with hx of Afib s/p ablation, HTN, asthma who presents with chest pain for the past 2 - 3 days. Pt states that she began having chest pain while performing ADLs a few days ago. She states that it has been intermittent since then and lasts up to 20 minutes. She has been taking Tylenol with some improvement in pain. She states that the pain is a tightness with some burning. Nothing worsens pain, such as change in position or deep breathing. States that she has been having some dizziness. Patient states that she is currently having some chest pain, rated 7/10 on pain scale. Denies N/V, SOB, epigastric pain, pleuritic chest pain. Past Medical History Reviewed: Historical Data, Nursing Documentation, Vital Signs Vital Signs: Last Vital Signs Temp 98.3 F 04/06/18 18:28 Pulse 64 04/06/18 18:28 Resp 18 04/06/18 18:28 BP 128/78 04/06/18 18:28 Pulse Ox 99 04/06/18 18:28 - Medical History PMH: Arthritis, Asthma, Atrial Fibrillation (s/p ablation), Cardia Arrhythmia, Emphysema, Gastritis, Gastrointestinal Ulcer, HTN, Hyperthyroidism Denies: Chronic Kidney Disease - Surgical History Surgical History: Appendectomy, Cholecystectomy, - Family History Family History: States: Unknown Family Hx - Immunization History Hx Tetanus Toxoid Vaccination: No Hx Influenza Vaccination: Yes Hx Pneumococcal Vaccination: Yes - Home Medications Home Medications: Ambulatory Orders Medication Instructions Recorded RX: Albuterol HFA [Ventolin HFA 90 2 puff IH Q4H PRN 02/21/17 mcg/actuation (8 g)] RX: Famotidine [Pepcid] 20 mg PO DAILY PRN 02/21/17 RX: Flecainide Acetate 150 mg PO Q12H 02/21/17 RX: Fluticasone/Vilanterol [Breo 1 puff IH DAILY 02/21/17 Ellipta 200-25 Mcg INH] RX: Metoprolol Succinate XL 100 mg PO DAILY 02/21/17 [Toprol XL] RX: Montelukast [Singulair] 10 mg PO HS 02/21/17 RX: Valsartan [Diovan] 160 mg PO DAILY 02/21/17 RX: amLODIPine [Norvasc] 5 mg PO HS 02/21/17 Albuterol 0.083% [Albuterol 3 ml IH Q4 PRN #20 neb 06/01/17 Sulfate 3 Ml] RX: Prednisone [Deltasone] 60 mg PO DAILY 5 Days tablet 06/01/17 Naproxen [Naprosyn] 500 mg PO Q12H #20 tab 12/01/17 - Allergies Allergies/Adverse Reactions: Allergies Allergy/AdvReac Type Severity Reaction Status Date / Time iodine Allergy ANAPHYLAXIS Verified 02/21/17 16:22 lactose Allergy ANGIOEDEMA Verified 02/21/17 16:22 GUANAKO Risk Score for UA/NSTEMI - GUANAKO Risk Score Age > 64: YES 3 or more CAD Risk Factors: YES Known CAD (Stenosis greater than 50%): NO Aspirin use in past 7 days: NO Severe Angina: NO EKG ST changes greater than 0.5mm: NO Positive Cardiac Marker: NO GUANAKO Score: 2 Risk %: 8% Wells Criteria for PE - Wells Criteria for Pulmonary Embolism Clinical Signs and Symptoms of DVT: No P.E is #1 Diagnosis, or Equally Likely: No Heart Rate >100: No Immobilization at least 3 days;Surgery previous 4 weeks: No Previous, objectively diagnosed PE or DVT: No Hemoptysis: No Malignancy w/treatment within 6 months, or palliative: No Total Score: 0 Physical Exam - Reviewed Nursing Documentation Reviewed: Yes Vital Signs Reviewed: Yes - Physical Exam Appears: Positive for: Non-toxic Head Exam: Positive for: ATRAUMATIC Cardiovascular/Chest: Positive for: Regular Rate, Rhythm, Murmur (II/ BRIAN heard best at LSB) Respiratory: Positive for: Normal Breath Sounds Gastrointestinal/Abdominal: Positive for: Normal Exam - Laboratory Results Result Diagrams: 04/06/18 19:00 04/06/18 19:40 - ECG O2 Sat by Pulse Oximetry: 99 Medical Decision Making Medical Decision Making: EKG CBC, CMP, Troponin CXR PA and lateral telemetry EKG 18:45: sinus, 1st degree AV block, HR 62, non-specific ST abnormality in inferior leads, no reciprocal changes. repeat EKG at 20:01: sinus, 1st degree AV block, HR 62, no change when compared with EKG from 18:45, pt continuing to have chest pain. CXR read by me: no active pulmonary disease. Pt endorsed to ALEXANDER Choi pending troponin result and re-evaluation. Disposition - Clinical Impression Clinical Impression: Chest pain - Patient ED Disposition Is Patient to be Admitted: Transfer of Care (ALEXANDER Choi) - Disposition Disposition: Transfer of Care Disposition Time: 20:10 Condition: FAIR Forms: [employer] (Emirati)
[2018-04-06 19:32] LABS: BASO % 0.4 % (0.0-2.0); EOS # 0.2 K/uL (0.0-0.7); EOS % 3.5 % (0.0-4.0); HEMOGLOBIN 13.9 g/dL (12.0-16.0); LYMPH # 2.1 K/uL (1.0-4.3); LYMPH % 31.1 % (20.0-40.0); MEAN CELL VOLUME 89.1 fl (81.0-99.0); MEAN CORPUSCULAR HEMOGLOBIN 29.5 pg (27.0-31.0); MEAN CORPUSCULAR HGB CONC 33.1 g/dL (33.0-37.0); MEAN PLATELET VOLUME 9.7 fl (7.2-11.7); MONO # 0.4 K/uL (0.0-0.8); MONO % 6.6 % (0.0-10.0); NEUT # 3.9 K/uL (1.8-7.0); NEUT % 58.4 % (50.0-75.0); RBC 4.72 Mil/uL (3.80-5.20); RED CELL DISTRIBUTION WIDTH 14.1 % (11.5-14.5); WHITE BLOOD COUNT 6.7 K/uL (4.8-10.8)
[2018-04-06 19:43] LABS: ALB/GLOB RATIO 1.2 (1.0-2.1); ALBUMIN 4.2 g/dL (3.5-5.0); ALT/SGPT 21 U/L (9-52); AST/SGOT 24 U/L (14-36); BLOOD UREA NITROGEN 18 mg/dl (7-17); CALCIUM 9.2 mg/dL (8.4-10.2); GFR NON-AFRICAN AMERICAN > 60
--- NOTE | 2018-04-06 20:41 | ED PDOC ---
- Laboratory Results Result Diagrams: 04/06/18 19:00 04/06/18 19:40 Lab Results: Troponin I < 0.0120 ng/mL (0.00-0.120) 04/06/18 19:40 Total Bilirubin 0.4 mg/dl (0.2-1.3) 04/06/18 19:40 AST 24 U/L (14-36) 04/06/18 19:40 ALT 21 U/L (9-52) 04/06/18 19:40 Alkaline Phosphatase 128 U/L (38-126) H 04/06/18 19:40 Total Protein 7.5 G/DL (6.3-8.2) 04/06/18 19:40 Albumin 4.2 g/dL (3.5-5.0) 04/06/18 19:40 Globulin 3.4 gm/dL (2.2-3.9) 04/06/18 19:40 Albumin/Globulin Ratio 1.2 (1.0-2.1) 04/06/18 19:40 - ECG O2 Sat by Pulse Oximetry: 99 Medical Decision Making Medical Decision Making: Patient received from previous physician. I concur with prior findings with additions as noted below. Data reviewed and patient disposition arranged as noted and discussed with patient and patient family. On re-evaluation, Pt indicated that she is often SOB with ALVAREZ after approximately 1/3 of a [place] block; her family also indicates that she sleeps in an easy chair sitting up at night and often has very swollen lower legs. I have ordered a BNP and coags, which were within acceptable clinical standards and presented no indication of clinical significant Based on clinical presentation, decision made to contact Hospitalist for admission to telemetry for R/O and observation; discussed case with Dr Sung, hospitalist, at 2200 who agreed to accept the patient in his service Disposition Discussed With : Sola Sung Doctor Will See Patient In The: Hospital Counseled Patient/Family Regarding: Studies Performed, Diagnosis - Clinical Impression Clinical Impression: Chest pain, Atypical chest pain - POA Present On Arrival: None - Disposition Disposition: Hospitalized as Observation Patient Disposition Time: 04:05 Condition: STABLE
[2018-04-06 21:33] LABS: PROTHROMBIN TIME 11.5 Seconds (9.8-13.1)
[2018-04-06 21:36] LABS: PARTIAL THROMBOPLASTIN TIME 41.8 Seconds (25.6-37.1)
[2018-04-06] MEDS ORDERED: Albuterol 0.083% Inhal Sol (2.5 mg/3 mL) UD IH PRN (22:35)
[2018-04-06] MEDS ORDERED: FLECAINIDE ACETATE 150 MG PO SCH (22:45)
--- NOTE | 2018-04-06 23:18 | CP.PCM.HP ---
History of Present Illness - History of Present Illness History of Present Illness: 67 y/o F with a PMHx of A-Fib, HTN, Asthma/Emphysema, OA presented to ED complaining of intermittent chest that began 2-3 days ago. Pain is described as brief episodes of [id number] sharp pain, last for second to a minute, occurs every few hours, resolves spontaneously, non-radiating, no precipitating factors, and NOT associated with diaphoresis or palpitations. Pt reports NO changes in her pulmonary function, her SOB is at baseline. No ill contacts. Pt denies fever, chills, nausea, vomiting, abdominal pain, wheezing, peripheral edema or rash. --On chart review: Echocardiogram on 02/22/17: LVEF 65-70%, small mid-interat rial septal defect with L-R shunt (possible PFO). --As per patient: last Echocardiogram was on 08/2017 and w/ unremarkable results, Holter monitor on 02/2018 with normal results, and cardiac stress test on 2016 with NO abnormalities. PCP: Odell Garcia Configuration Engineer: Dr Ramirez Allergies: lactose and iodine. Meds: Flecainide 150mg BID, Ellipta daily, Albuterol pump PRN, Metoprolol Succ 100mg PO daily, Norvasc 5 mg daily, Montelukast 10mg HS. -PMHx: A fib, HTN, COPD/Asthma, Osteoarthritis. -PSHx: Ablation for a fib (02/2014), Thyroid nodule resection, Hysterectomy, C- Section x 4, Appendectomy, Cholecystectomy -FHx: Mother at 80 y/o due to Stroke, had Hx of CAD/KS and cardiac issues. -SHx: Never smoker, no alcohol and no rec drugs. Surrogate Dec maker: Montez Oscar, son, At ED: --CBC and CMP were unremarkable. --Troponin negative x1. --Pro-BNP was WNL. --EKG and CXR reviewed: ->EKG preliminary showed sinus rhythm, 1st degree AV block, HR 62, possible ST abnormality in inferior leads, no changes in septal leads. ->CXR preliminary unremarkable, f/u final report. Present on Admission - Present on Admission Any Indicators Present on Admission: No Review of Systems - Constitutional Constitutional: absent: Chills, Fever - EENT Nose/Mouth/Throat: absent: Nasal Congestion, Odynophagia, Sore Throat, Neck Pain, Neck Mass - Cardiovascular Cardiovascular: Chest Pain. absent: Chest Pain with Activity, Dyspnea - Respiratory Respiratory: absent: Cough, Dyspnea, Hemoptysis - Gastrointestinal Gastrointestinal: absent: Abdominal Pain, Hematemesis, Nausea, Vomiting - Genitourinary Genitourinary: absent: Dysuria, Flank Pain, Hematuria, Pyuria Past Patient History - Past Medical History & Family History Past Medical History?: Yes - Past Social History Smoking Status: Never Smoked - CARDIAC Hx Atrial Fibrillation: Yes (s/p ablation) Hx Cardia Arrhythmia: Yes Hx Hypertension: Yes - PULMONARY Hx Asthma: Yes Hx Emphysema: Yes - NEUROLOGICAL Hx Neurological Disorder: No - HEENT Hx HEENT Problems: No - RENAL Hx Chronic Kidney Disease: No - ENDOCRINE/METABOLIC Hx Hyperthyroidism: Yes - HEMATOLOGICAL/ONCOLOGICAL Hx Blood Disorders: No - INTEGUMENTARY Hx Dermatological Problems: Yes Hx Psoriasis: Yes - MUSCULOSKELETAL/RHEUMATOLOGICAL Hx Arthritis: Yes - GASTROINTESTINAL Hx Gastritis: Yes - GENITOURINARY/GYNECOLOGICAL Hx Genitourinary Disorders: No - PSYCHIATRIC Hx Psychophysiologic Disorder: No Hx Substance Use: No - SURGICAL HISTORY Hx Appendectomy: Yes Hx Cholecystectomy: Yes - ANESTHESIA Hx Anesthesia: Yes Hx Anesthesia Reactions: No Hx Malignant Hyperthermia: No Meds Allergies/Adverse Reactions: Allergies Allergy/AdvReac Type Severity Reaction Status Date / Time iodine Allergy ANAPHYLAXIS Verified 02/21/17 16:22 lactose Allergy ANGIOEDEMA Verified 02/21/17 16:22 Physical Exam - Constitutional Appears: No Acute Distress - Head Exam Head Exam: ATRAUMATIC, NORMAL INSPECTION - Eye Exam Eye Exam: EOMI, Normal appearance - ENT Exam ENT Exam: Mucous Membranes Moist - Neck Exam Neck exam: Positive for: Full Rom, Normal Inspection - Respiratory Exam Respiratory Exam: NORMAL BREATHING PATTERN. absent: Rhonchi, Wheezes, Respiratory Distress - Cardiovascular Exam Cardiovascular Exam: REGULAR RHYTHM, +S1, +S2 - GI/Abdominal Exam GI & Abdominal Exam: Soft. absent: Guarding, Rebound, Rigid, Tenderness - Extremities Exam Extremities exam: Positive for: full ROM, normal inspection. Negative for: calf tenderness, pedal edema - Back Exam Back exam: absent: CVA tenderness (L), CVA tenderness (R) - Neurological Exam Neurological exam: Alert, Oriented x3 - Psychiatric Exam Psychiatric exam: Normal Affect, Normal Mood Results - Vital Signs Recent Vital Signs: Last Vital Signs Temp 98 F 04/06/18 19:28 Pulse 59 L 04/06/18 19:28 Resp 18 04/06/18 19:28 BP 125/54 L 04/06/18 19:28 Pulse Ox 99 04/06/18 22:04 - Labs Result Diagrams: 04/06/18 19:00 04/06/18 19:40 Labs: Laboratory Results - last 24 hr 04/06/18 04/06/18 04/06/18 19:00 19:40 21:11 WBC 6.7 RBC 4.72 Hgb 13.9 Hct 42.1 MCV 89.1 MCH 29.5 MCHC 33.1 RDW 14.1 Plt Count 207 MPV 9.7 Neut % (Auto) 58.4 Lymph % (Auto) 31.1 [place] % (Auto) 6.6 Eos % (Auto) 3.5 Baso % (Auto) 0.4 Neut # (Auto) 3.9 Lymph # (Auto) 2.1 [place] # (Auto) 0.4 Eos # (Auto) 0.2 Baso # (Auto) 0.0 PT INR APTT Sodium 140 Potassium 3.7 Chloride 100 Carbon Dioxide 29 Anion Gap 15 BUN 18 H Creatinine 0.9 Est GFR ( Amer) > 60 Est GFR (Non-Af Amer) > 60 Random Glucose 104 Calcium 9.2 Total Bilirubin 0.4 AST 24 ALT 21 Alkaline Phosphatase 128 H Troponin I < 0.0120 NT-Pro-B Natriuret Pep 120 Total Protein 7.5 Albumin 4.2 Globulin 3.4 Albumin/Globulin Ratio 1.2 04/06/18 21:11 WBC RBC Hgb Hct MCV MCH MCHC RDW Plt Count MPV Neut % (Auto) Lymph % (Auto) [place] % (Auto) Eos % (Auto) Baso % (Auto) Neut # (Auto) Lymph # (Auto) [place] # (Auto) Eos # (Auto) Baso # (Auto) PT 11.5 INR 1.0 APTT 41.8 H Sodium Potassium Chloride Carbon Dioxide Anion Gap BUN Creatinine Est GFR ( Amer) Est GFR (Non-Af Amer) Random Glucose Calcium Total Bilirubin AST ALT Alkaline Phosphatase Troponin I NT-Pro-B Natriuret Pep Total Protein Albumin Globulin Albumin/Globulin Ratio Assessment & Plan - Assessment and Plan (Free Text) Assessment: 67 y/o F with a PMHx of A-Fib, s/p cardiac ablation, HTN, Asthma/Emphysema, OA presented with 3 days Hx of brief episodes of chest pain. --Troponin negative x1 --Pro-BNP WNL. PLAN: >Chest pain --Stable, afebrile. --Need to rule out ACS --Admit to Telemetry --Cardiac monitoring --Cardiology consult, Dr Ramirez --Aspirin 325mg now, Nitroglycerin SL PRN for pain, Aspirin 81 mg daily. --Series of troponin Q6H x3 in total >HTN --Home medications resumed >A-Fib --Home medications resume --Cardiology consult, Dr Ramirez. >Asthma/COPD --Home medicatins resume --Albuterol INH PRN >DVT Prophylaxis --SCD's --Lovenox 40mg daily Case discussed with Patito Rouse PGY-2 - Date & Time Date: 04/06/18 Time: 22:30
[2018-04-07] MEDS ORDERED: Enoxaparin 40 mg Syringe SC SCH (09:00)
[2018-04-07] MEDS ORDERED: Patient's Own Med (Fluticasone/Vilanterol [Breo Ellipta 200-25 Mcg Inh] 1 PUFF) IH SCH (09:00)
[2018-04-07] MEDS ORDERED: Metoprolol Succinate 100 mg XL Tab PO SCH (09:00)
[2018-04-07] MEDS ORDERED: Fluticasone-Salmeterol 250-50mcg Diskus IH SCH (09:00)
--- NOTE | 2018-04-07 10:10 | RAD ---
Date of service: 04/06/2018 HISTORY: shortness of breath, cough COMPARISON: Chest radiograph dated 06/01/2017. TECHNIQUE: Chest PA and lateral FINDINGS: LUNGS: No active pulmonary disease. PLEURA: No significant pleural effusion identified. No pneumothorax apparent. CARDIOVASCULAR: Aortic atherosclerotic calcifications. Cardiomediastinal silhouette stably enlarged. OSSEOUS STRUCTURES: Unchanged. VISUALIZED UPPER ABDOMEN: Right upper quadrant surgical clips. OTHER FINDINGS: None. IMPRESSION: No active disease.
--- NOTE | 2018-04-07 10:11 | CP.PCM.DIS ---
<Nighat Arreaga - Last Filed: 04/07/18 11:31> Provider - Provider Date of Admission: 04/06/18 21:58 Attending physician: Sola Sung MD Primary care physician: PCP: Odell Garcai Senior Financial Reporting Accountant: Dr Ramirez Consults: 04/06/18 22:31 Cardiology Consult Routine Comment: Consulting Provider: Ramsey Ramirez Consulting Physician: Ramsey Ramirez Reason for Consult: Chest pain, R/O ACS 04/07/18 04:04 Pastoral Care Referral Routine Comment: Physician Instructions: Reason For Exam: new admission Time Spent in preparation of Discharge (in minutes): 30 Hospital Course - Lab Results Lab Results: Most Recent Lab Values WBC 6.7 K/uL (4.8-10.8) 04/06/18 19:00 RBC 4.72 Mil/uL (3.80-5.20) 04/06/18 19:00 Hgb 13.9 g/dL (12.0-16.0) 04/06/18 19:00 Hct 42.1 % (34.0-47.0) 04/06/18 19:00 MCV 89.1 fl (81.0-99.0) 04/06/18 19:00 MCH 29.5 pg (27.0-31.0) 04/06/18 19:00 MCHC 33.1 g/dL (33.0-37.0) 04/06/18 19:00 RDW 14.1 % (11.5-14.5) 04/06/18 19:00 Plt Count 207 K/uL (130-400) 04/06/18 19:00 MPV 9.7 fl (7.2-11.7) 04/06/18 19:00 Neut % (Auto) 58.4 % (50.0-75.0) 04/06/18 19:00 Lymph % (Auto) 31.1 % (20.0-40.0) 04/06/18 19:00 [place] % (Auto) 6.6 % (0.0-10.0) 04/06/18 19:00 Eos % (Auto) 3.5 % (0.0-4.0) 04/06/18 19:00 Baso % (Auto) 0.4 % (0.0-2.0) 04/06/18 19:00 Neut # (Auto) 3.9 K/uL (1.8-7.0) 04/06/18 19:00 Lymph # (Auto) 2.1 K/uL (1.0-4.3) 04/06/18 19:00 [place] # (Auto) 0.4 K/uL (0.0-0.8) 04/06/18 19:00 Eos # (Auto) 0.2 K/uL (0.0-0.7) 04/06/18 19:00 Baso # (Auto) 0.0 K/uL (0.0-0.2) 04/06/18 19:00 PT 11.5 Seconds (9.8-13.1) 04/06/18 21:11 INR 1.0 04/06/18 21:11 APTT 41.8 Seconds (25.6-37.1) H 04/06/18 21:11 Sodium 140 mmol/l (132-148) 04/06/18 19:40 Potassium 3.7 MMOL/L (3.6-5.0) 04/06/18 19:40 Chloride 100 mmol/L (98-107) 04/06/18 19:40 Carbon Dioxide 29 mmol/L (22-30) 04/06/18 19:40 Anion Gap 15 (10-20) 04/06/18 19:40 BUN 18 mg/dl (7-17) H 04/06/18 19:40 Creatinine 0.9 mg/dl (0.7-1.2) 04/06/18 19:40 Est GFR ( Amer) > 60 04/06/18 19:40 Est GFR (Non-Af Amer) > 60 04/06/18 19:40 Random Glucose 104 mg/dL (65-105) 04/06/18 19:40 Calcium 9.2 mg/dL (8.4-10.2) 04/06/18 19:40 Total Bilirubin 0.4 mg/dl (0.2-1.3) 04/06/18 19:40 AST 24 U/L (14-36) 04/06/18 19:40 ALT 21 U/L (9-52) 04/06/18 19:40 Alkaline Phosphatase 128 U/L (38-126) H 04/06/18 19:40 Troponin I < 0.0120 ng/mL (0.00-0.120) 04/07/18 08:50 NT-Pro-B Natriuret Pep 120 pg/ml (0-900) 04/06/18 21:11 Total Protein 7.5 G/DL (6.3-8.2) 04/06/18 19:40 Albumin 4.2 g/dL (3.5-5.0) 04/06/18 19:40 Globulin 3.4 gm/dL (2.2-3.9) 04/06/18 19:40 Albumin/Globulin Ratio 1.2 (1.0-2.1) 04/06/18 19:40 - Hospital Course Hospital Course: 67 y/o F with a PMHx of A-Fib, s/p cardiac ablation, HTN, Asthma/Emphysema, OA presented with 3 days Hx of brief episodes of chest pain. Patient denies chest pain at this time. Patient complains of minimal shortness of breath. atient troponins X 3 negative, CXR shows no acute disease Chest pain --Stable, afebrile, resolved --Troponins x 3 negative --CXR negative for acute diease --EKG- sinus bradycardia with 2st degree AV block --Follow up with Cardiology- Dr Ramirez, recommendations appreciated -- Rx ASA 81 mg DAILY PO HTN --continue with Home medications A-Fib --Home medications resume --Follow up with Cardiology- Dr Ramirez, recommendations appreciated Asthma/COPD --Home medicatins resume --Albuterol INH PRN - Date & Time of H&P Date of H&P: 04/07/18 Time of H&P: 10:41 Discharge Exam - Head Exam Head Exam: ATRAUMATIC, NORMAL INSPECTION - Eye Exam Eye Exam: Normal appearance, PERRL - ENT Exam ENT Exam: Mucous Membranes Moist - Neck Exam Neck exam: Full Rom - Respiratory Exam Respiratory Exam: Clear to PA & Lateral, NORMAL BREATHING PATTERN. absent: Rales, Rhonchi, Wheezes - Cardiovascular Exam Cardiovascular Exam: REGULAR RHYTHM, +S1, +S2 - GI/Abdominal Exam GI & Abdominal Exam: Normal Bowel Sounds, Soft. absent: Distended, Firm, G uarding - Extremities Exam Extremities exam: full ROM - Back Exam Back exam: absent: CVA tenderness (L), CVA tenderness (R) - Neurological Exam Neurological exam: Alert, Oriented x3 - Psychiatric Exam Psychiatric exam: Normal Affect, Normal Mood - Skin Skin Exam: Normal Color Discharge Plan - Discharge Medications Prescriptions: Aspirin [Ecotrin] 81 mg PO DAILY #30 tabec - Follow Up Plan Condition: STABLE Disposition: HOME/ ROUTINE Patient education suggested?: Yes Instructions: Chest Pain Additional Instructions: Follow up with Dr. Dorman in 1 week. Follow up with Dr. Ramirez in 1 week. Return to ED if symptoms return. Referrals: Odell Dorman MD [Family Provider] - Ramsey Ramirez MD [Staff Provider] - <ShuklaGaby - Last Filed: 04/07/18 15:24> Provider - Provider Date of Admission: 04/06/18 21:58 Attending physician: Sola Sung MD Consults: 04/06/18 22:31 Cardiology Consult Routine Comment: Consulting Provider: Ramsey Ramirez Consulting Physician: Ramsey Ramirez Reason for Consult: Chest pain, R/O ACS 04/07/18 04:04 Pastoral Care Referral Routine Comment: Physician Instructions: Reason For Exam: new admission Hospital Course - Lab Results Lab Results: Most Recent Lab Values WBC 6.7 K/uL (4.8-10.8) 04/06/18 19:00 RBC 4.72 Mil/uL (3.80-5.20) 04/06/18 19:00 Hgb 13.9 g/dL (12.0-16.0) 04/06/18 19:00 Hct 42.1 % (34.0-47.0) 04/06/18 19:00 MCV 89.1 fl (81.0-99.0) 04/06/18 19:00 MCH 29.5 pg (27.0-31.0) 04/06/18 19:00 MCHC 33.1 g/dL (33.0-37.0) 04/06/18 19:00 RDW 14.1 % (11.5-14.5) 04/06/18 19:00 Plt Count 207 K/uL (130-400) 04/06/18 19:00 MPV 9.7 fl (7.2-11.7) 04/06/18 19:00 Neut % (Auto) 58.4 % (50.0-75.0) 04/06/18 19:00 Lymph % (Auto) 31.1 % (20.0-40.0) 04/06/18 19:00 [place] % (Auto) 6.6 % (0.0-10.0) 04/06/18 19:00 Eos % (Auto) 3.5 % (0.0-4.0) 04/06/18 19:00 Baso % (Auto) 0.4 % (0.0-2.0) 04/06/18 19:00 Neut # (Auto) 3.9 K/uL (1.8-7.0) 04/06/18 19:00 Lymph # (Auto) 2.1 K/uL (1.0-4.3) 04/06/18 19:00 [place] # (Auto) 0.4 K/uL (0.0-0.8) 04/06/18 19:00 Eos # (Auto) 0.2 K/uL (0.0-0.7) 04/06/18 19:00 Baso # (Auto) 0.0 K/uL (0.0-0.2) 04/06/18 19:00 PT 11.5 Seconds (9.8-13.1) 04/06/18 21:11 INR 1.0 04/06/18 21:11 APTT 41.8 Seconds (25.6-37.1) H 04/06/18 21:11 Sodium 140 mmol/l (132-148) 04/06/18 19:40 Potassium 3.7 MMOL/L (3.6-5.0) 04/06/18 19:40 Chloride 100 mmol/L (98-107) 04/06/18 19:40 Carbon Dioxide 29 mmol/L (22-30) 04/06/18 19:40 Anion Gap 15 (10-20) 04/06/18 19:40 BUN 18 mg/dl (7-17) H 04/06/18 19:40 Creatinine 0.9 mg/dl (0.7-1.2) 04/06/18 19:40 Est GFR ( Amer) > 60 04/06/18 19:40 Est GFR (Non-Af Amer) > 60 01/21/19 19:40 Random Glucose 104 mg/dL (65-105) 04/06/18 19:40 Calcium 9.2 mg/dL (8.4-10.2) 04/06/18 19:40 Total Bilirubin 0.4 mg/dl (0.2-1.3) 04/06/18 19:40 AST 24 U/L (14-36) 04/06/18 19:40 ALT 21 U/L (9-52) 04/06/18 19:40 Alkaline Phosphatase 128 U/L (38-126) H 04/06/18 19:40 Troponin I < 0.0120 ng/mL (0.00-0.120) 04/07/18 08:50 NT-Pro-B Natriuret Pep 120 pg/ml (0-900) 04/06/18 21:11 Total Protein 7.5 G/DL (6.3-8.2) 04/06/18 19:40 Albumin 4.2 g/dL (3.5-5.0) 04/06/18 19:40 Globulin 3.4 gm/dL (2.2-3.9) 04/06/18 19:40 Albumin/Globulin Ratio 1.2 (1.0-2.1) 04/06/18 19:40 Attending/Attestation - Attestation I have personally seen and examined this patient.: Yes I have fully participated in the care of the patient.: Yes I have reviewed all pertinent clinical information, including history, physical exam and plan: Yes Notes (Text): Chest Pain , ACS ruled out , further work up as outpt needed to determine etiology History of Atrial Fibrillation s/p Ablation Asthma, mild intermittent HTN - Trop x 3 negative - no new EKG change - CP resolved - Cleared by Dr Ramirez for disxharge - ff up with Dr Ramirez for further work up
[2018-04-07 12:22] VITALS: BP 128/68; PULSE 57; RESP 20; TEMP 97.9; O2SAT 98
--- NOTE | 2018-04-07 19:45 | CARD ---
APPROVED REPORT Date of service: 04/06/2018 EKG Measurement Heart [id number] <Conclusion> Sinus bradycardia with 1st degree AV block Otherwise normal ECG
== END 2018-04-07 14:30 | disposition home or self-care (01) ==
LOC: H.ER 18:22 → H.ERHOLD 21:58 → H.TEL 22:59
PROVIDERS: ADMIT Internal Medicine; ATTEND Internal Medicine
DX: R07.9 Chest pain, unspecified (principal); I48.91 Unspecified atrial fibrillation; I44.0 Atrioventricular block, first degree; Q21.1 Atrial septal defect; J45.20 Mild intermittent asthma, uncomplicated; K29.70 Gastritis, unspecified, without bleeding; J43.9 Emphysema, unspecified; I10 Essential (primary) hypertension; Z87.11 Personal history of peptic ulcer disease; Z91.041 Radiographic dye allergy status; Z91.011 Allergy to milk products
CPT/HCPCS: 36415; 71046; 80053; 83880; 84484; 85025; 85610; 85730; 93005; 99285; G0378; J1650

== ENCOUNTER 2018-08-10 22:13 | Observation (INO) | payer OTHER ==
[2018-08-10] MEDS ORDERED: Albuterol-Ipratrop 3 mg / 0.5 (3 ml) UD INH STA (22:50)
[2018-08-10] MEDS ORDERED: Albuterol-Ipratrop 3 mg / 0.5 (3 ml) UD ONE ×2 (23:00→23:01)
[2018-08-10 23:31] LABS: ALB/GLOB RATIO 1.2 (1.0-2.1); ALBUMIN 3.9 g/dL (3.5-5.0); BLOOD UREA NITROGEN 22 mg/dl (7-17); CALCIUM 8.9 mg/dL (8.4-10.2); GFR NON-AFRICAN AMERICAN > 60
[2018-08-10 23:33] LABS: ALT/SGPT 20 U/L (9-52); AST/SGOT 24 U/L (14-36)
[2018-08-10] MEDS ORDERED: levoFLOXacin 750 mg in D5W 150 ML BAG IVPB STA (23:35)
[2018-08-10 23:36] LABS: BASO % 0.4 % (0.0-2.0); EOS % 0.4 % (0.0-4.0); HEMOGLOBIN 12.4 g/dL (12.0-16.0); LYMPH # 1.6 K/uL (1.0-4.3); LYMPH % 18.9 % (20.0-40.0); MEAN CELL VOLUME 87.8 fl (81.0-99.0); MEAN CORPUSCULAR HEMOGLOBIN 29.3 pg (27.0-31.0); MEAN CORPUSCULAR HGB CONC 33.3 g/dL (33.0-37.0); MEAN PLATELET VOLUME 8.7 fl (7.2-11.7); MONO # 0.4 K/uL (0.0-0.8); MONO % 5.2 % (0.0-10.0); NEUT # 6.4 K/uL (1.8-7.0); NEUT % 75.1 % (50.0-75.0); NRBC % 0.1 % (0.0-0.0); RBC 4.22 Mil/uL (3.80-5.20); RED CELL DISTRIBUTION WIDTH 14.6 % (11.5-14.5); WHITE BLOOD COUNT 8.6 K/uL (4.8-10.8)
--- NOTE | 2018-08-10 23:40 | ED PDOC ---
HPI: SOB/CHF/COPD Time Seen by Provider: 08/10/18 22:27 Chief Complaint (Nursing): Shortness Of Breath Chief Complaint (Provider): Shortness Of Breath History Per: Patient History/Exam Limitations: no limitations Onset/Duration Of Symptoms: Days (x3) Associated Symptoms: denies: Fever, Chest Pain Additional Complaint(s): 68 years old female with history of hypertension, high cholesterol and asthma presents to ER for evaluation of shortness of breath and cough for the last 3 days that feels like having asthma attack. Patient reports using nebulizer albuterol and states she had her second dose of steroid this month with no improvement. She states when she coughs it seems to make everything worse and becomes more short in breath. Patient reports leg swelling for the past 3 days that is slightly improving with rest. She denies chest pressure but reports pleuritic pain when coughing. Patient also reports mild rhinorrhea and itchy throat for the last month that attributes to allergy. She denies dyspnea on exertion, fever or phlegm. PMD: Odell Dorman Childbirth Educator: Dr. Hunter Financial Aid Officer: Dr. Ramirez Past Medical History Reviewed: Historical Data, Nursing Documentation, Vital Signs Vital Signs: Last Vital Signs Temp 98.3 F 08/10/18 22:23 Pulse 71 08/10/18 22:23 Resp 14 08/10/18 22:23 BP 138/74 08/10/18 22:23 Pulse Ox 97 08/10/18 22:23 Primary Care Provider: Odell Dorman - Medical History PMH: Arthritis, Asthma, Atrial Fibrillation (s/p ablation), Cardia Arrhythmia, Emphysema, Gastritis, Gastrointestinal Ulcer, HTN, Hypercholesterolemia, Hyperthyroidism Denies: HIV, Chronic Kidney Disease - Surgical History Surgical History: Appendectomy, Cholecystectomy, - Family History Family History: States: Hypertension - Social History Current smoker - smoking cessation education provided: No Alcohol: None Drugs: Denies - Immunization History Hx Tetanus Toxoid Vaccination: No Hx Influenza Vaccination: Yes Hx Pneumococcal Vaccination: Yes - Home Medications Home Medications: Ambulatory Orders Medication Instructions Recorded Albuterol HFA [Ventolin HFA 90 2 puff IH Q4H PRN 02/21/17 mcg/actuation (8 g)] Flecainide Acetate 150 mg PO Q12H 02/21/17 Fluticasone/Vilanterol [Breo 1 puff IH DAILY 02/21/17 Ellipta 200-25 Mcg INH] Metoprolol Succinate XL [Toprol XL] 100 mg PO DAILY 02/21/17 Valsartan [Diovan] 160 mg PO DAILY 02/21/17 amLODIPine [Norvasc] 5 mg PO HS 02/21/17 Albuterol HFA [Ventolin HFA 90 2 puff IH [id number] #1 inh 08/11/18 mcg/actuation (8 g)] Albuterol/Ipratropium [Duoneb 3 3 ml INH RQ4 neb 08/11/18 mg/0.5 mg (3 ml) UD] Butalbital/Acetaminophen 1 tab PO Q4 PRN 08/11/18 [Butalbital-Acetaminophn 50-325] predniSONE [predniSONE Tab] 5 mg PO ASDIR #21 tab 08/11/18 traMADol [Ultram] 50 mg PO BID 08/11/18 - Allergies Allergies/Adverse Reactions: Allergies Allergy/AdvReac Type Severity Reaction Status Date / Time iodine Allergy ANAPHYLAXIS Verified 08/12/18 13:38 lactose Allergy ANGIOEDEMA Verified 08/12/18 13:38 Penicillins AdvReac ITCHING Verified 08/12/18 13:38 Review of Systems ROS Statement: Except As Marked, All Systems Reviewed And Found Negative Constitutional: Negative for: Fever ENT: Positive for: Nose Discharge (mild rhinorrhea) Cardiovascular: Positive for: Chest Pain (pleuritic pain when coughing) Respiratory: Positive for: Cough (No phlegm), Shortness of Breath. Negative for: Other (dyspnea on exertion) Physical Exam - Reviewed Nursing Documentation Reviewed: Yes Vital Signs Reviewed: Yes - Physical Exam Appears: Positive for: Non-toxic Head Exam: Positive for: ATRAUMATIC, NORMOCEPHALIC Skin: Positive for: Warm, Dry Eye Exam: Positive for: EOMI, PERRL ENT: Positive for: Moist Mucous Membranes. Negative for: Tonsillar Exudate, Tonsillar Swelling Neck: Positive for: Painless ROM, Supple Cardiovascular/Chest: Positive for: Regular Rate, Rhythm. Negative for: Murmur Respiratory: Positive for: Rales (at base of bilateral lung field), Respiratory Distress (mild), Other (Poor air movement). Negative for: Wheezing Gastrointestinal/Abdominal: Positive for: Soft. Negative for: Tenderness Back: Positive for: Normal Inspection. Negative for: Decreased ROM Extremity: Positive for: Normal ROM, Swelling (Leg) Lymphatic: Negative for: Adenopathy Neurological/Psych: Positive for: Awake, Alert, Oriented (x3) - Laboratory Results Result Diagrams: 08/11/18 06:10 08/11/18 06:10 Lab Results: Total Bilirubin 0.5 mg/dl (0.2-1.3) 08/10/18 23:18 AST 24 U/L (14-36) 08/10/18 23:18 ALT 20 U/L (9-52) 08/10/18 23:18 Alkaline Phosphatase 86 U/L (38-126) 08/10/18 23:18 Total Protein 7.1 G/DL (6.3-8.2) 08/10/18 23:18 Albumin 3.9 g/dL (3.5-5.0) 08/10/18 23:18 Globulin 3.2 gm/dL (2.2-3.9) 08/10/18 23:18 Albumin/Globulin Ratio 1.2 (1.0-2.1) 08/10/18 23:18 - ECG ECG Rhythm: Positive for: Normal QRS, Normal ST Segment, Sinus Rhythm. Negative for: ST/T Changes Rate: 70 O2 Sat by Pulse Oximetry: 97 (RA) Pulse Ox Interpretation: Normal Medical Decision Making Medical Decision Making: Initial impression: shortness of breath. Differential includes but not limited to asthma exacerbation, CHF, pneumonia, pleural effusion and bronchitis. Initial plan: --Type and screen --EKG --BNP --CMP --Magnesium --Phosphorous --Troponin --Urine dipstick --CBC --CXR --Duoneb 3 ml INH --Levaquin 750 mg IVPB --SOLU-Medrol 125 mg IVP CXR Marked peribronchial thickening on reeval pt continues to feel shortness of breath. poor air movement. but no wheeze carloz Lara who covers PMD Dr Dorman of hospitalization carloz Hunter Pulmonology. Scribe Attestation: Documented by China Antonio acting as a scribe for Ara Reina MD. Provider Scribe Attestation: All medical record entries made by the Scribe were at my direction and personally dictated by me. I have reviewed the chart and agree that the record accurately reflects my personal performance of the history, physical exam, medical decision making, and the department course for this patient. I have also personally directed, reviewed, and agree with the discharge instructions and disposition. Disposition - Clinical Impression Clinical Impression: Asthma exacerbation, Dyspnea Counseled Patient/Family Regarding: Studies Performed, Diagnosis - Disposition Disposition Time: 23:00 Condition: FAIR - Pt Status Changed To: Hospital Disposition Of: Observation - POA Present On Arrival: None
[2018-08-10 23:43] LABS: B-TYPE NATRIURETIC PEPTIDE 123 pg/ml (0-900)
[2018-08-10] MEDS ORDERED: levoFLOXacin 500 mg in D5W 0 MG/0 ML BAG IVPB ONE (23:53)
[2018-08-10] MEDS ORDERED: levoFLOXacin 750 mg in D5W 750 MG/150 ML BAG IVPB ONE (23:55)
[2018-08-11] MEDS ORDERED: ACETAMINOPHEN PO PRN ×2 (01:36→02:32)
[2018-08-11] MEDS ORDERED: Albuterol HFA 90 mcg/actuation (8 g) IH PRN (01:36)
[2018-08-11] MEDS ORDERED: BUTALBITAL PO PRN ×2 (01:36→02:32)
[2018-08-11] MEDS ORDERED: Albuterol-Ipratrop 3 mg / 0.5 (3 ml) UD INH PRN (01:37)
[2018-08-11] MEDS ORDERED: FLECAINIDE ACETATE 150 MG PO SCH ×2 (01:45→11:00)
--- NOTE | 2018-08-11 01:45 | CP.PCM.HP ---
<Tess Dc - Last Filed: 08/11/18 01:41> History of Present Illness - History of Present Illness History of Present Illness: CC: dyspnea and cough HPI: 68 YO female with PMHx of HTN, asthma/copd, OA, a fib presents to [facility] ED for dyspnea. Patient states that her SOB started 4 days ago and has worsed over the course of the past few days. Patient states that she has been using her albuterol inh at home but has only mildly helped her dyspnea, also has had persistent cough (non-productive). Denies chest pain, abdominal pain, fevers, chills, and sick contacts. PMD: Dr. Dorman Medical Equipment Sales: Dr Ramirez Appeals Officer: PMHx: A fib, HTN, COPD/Asthma, Osteoarthritis. SurgHx: Ablation for a fib (02/2014), Thyroid nodule resection, Hysterectomy, C- Section x 4, Appendectomy, Cholecystectomy FHx: Mother at 80 y/o due to Stroke, had Hx of CAD/VA and cardiac issues. SHx: Denies smoker, ETOH and illicit drug use Allergies: lactose and iodine. Present on Admission - Present on Admission Any Indicators Present on Admission: No Review of Systems - Constitutional Constitutional: absent: Chills, Fever - Cardiovascular Cardiovascular: absent: Chest Pain, Palpitations - Respiratory Respiratory: Cough, Dyspnea - Gastrointestinal Gastrointestinal: absent: Abdominal Pain Past Patient History - Past Medical History & Family History Past Medical History?: Yes - Past Social History Smoking Status: Never Smoked Alcohol: None Drugs: Denies Home Situation {Lives}: Alone - CARDIAC Hx Cardiac Disorders: Yes - PULMONARY Hx Respiratory Disorders: Yes - NEUROLOGICAL Hx Neurological Disorder: No - HEENT Hx HEENT Problems: No - RENAL Hx Chronic Kidney Disease: No - ENDOCRINE/METABOLIC Hx Hyperthyroidism: Yes - HEMATOLOGICAL/ONCOLOGICAL Hx Human Immunodeficiency Virus (HIV): No - INTEGUMENTARY Hx Dermatological Problems: Yes Hx Psoriasis: Yes - MUSCULOSKELETAL/RHEUMATOLOGICAL Hx Musculoskeletal Disorders: Yes - GASTROINTESTINAL Hx Gastritis: Yes - GENITOURINARY/GYNECOLOGICAL Hx Genitourinary Disorders: No - PSYCHIATRIC Hx Psychophysiologic Disorder: No Hx Substance Use: No - SURGICAL HISTORY Hx Appendectomy: Yes Hx Cholecystectomy: Yes - ANESTHESIA Hx Anesthesia: Yes Hx Anesthesia Reactions: No Hx Malignant Hyperthermia: No Meds Allergies/Adverse Reactions: Allergies Allergy/AdvReac Type Severity Reaction Status Date / Time iodine Allergy ANAPHYLAXIS Verified 02/21/17 16:22 lactose Allergy ANGIOEDEMA Verified 02/21/17 16:22 Penicillins AdvReac ITCHING Verified 08/10/18 22:21 Physical Exam - Constitutional Appears: No Acute Distress, Other (able to speak in full sentences ) - Eye Exam Eye Exam: EOMI - ENT Exam ENT Exam: Mucous Membranes Moist - Respiratory Exam Respiratory Exam: Wheezes (faint wheezing, in the lower lobes, mild ), NORMAL BREATHING PATTERN. absent: Rales, Respiratory Distress - Cardiovascular Exam Cardiovascular Exam: REGULAR RHYTHM, +S1, +S2 - GI/Abdominal Exam GI & Abdominal Exam: Normal Bowel Sounds, Soft. absent: Tenderness - Extremities Exam Extremities exam: Positive for: normal inspection, pedal edema (1+ around the ankles). Negative for: calf tenderness - Back Exam Back exam: NORMAL INSPECTION - Neurological Exam Neurological exam: Alert, Oriented x3 - Psychiatric Exam Psychiatric exam: Normal Affect, Normal Mood - Skin Skin Exam: Normal Color Results - Vital Signs Recent Vital Signs: Last Vital Signs Temp 98.6 F 08/11/18 01:33 Pulse 72 08/11/18 01:33 Resp 19 08/11/18 01:33 BP 143/80 08/11/18 01:08 Pulse Ox 93 L 08/11/18 01:33 - Labs Result Diagrams: 08/10/18 23:18 08/10/18 23:18 Labs: Laboratory Results - last 24 hr 08/10/18 08/10/18 08/10/18 23:18 23:18 23:18 WBC 8.6 RBC 4.22 Hgb 12.4 Hct 37.1 MCV 87.8 MCH 29.3 MCHC 33.3 RDW 14.6 H Plt Count 242 MPV 8.7 Neut % (Auto) 75.1 H Lymph % (Auto) 18.9 L [place] % (Auto) 5.2 Eos % (Auto) 0.4 Baso % (Auto) 0.4 Neut # (Auto) 6.4 Lymph # (Auto) 1.6 [place] # (Auto) 0.4 Eos # (Auto) 0.0 Baso # (Auto) 0.0 Sodium 140 Potassium 4.3 Chloride 103 Carbon Dioxide 29 Anion Gap 12 BUN 22 H Creatinine 0.7 Est GFR ( Amer) > 60 Est GFR (Non-Af Amer) > 60 Random Glucose 117 H Calcium 8.9 Phosphorus 3.9 Magnesium 2.2 Total Bilirubin 0.5 AST 24 ALT 20 Alkaline Phosphatase 86 Troponin I < 0.0120 NT-Pro-B Natriuret Pep 123 Total Protein 7.1 Albumin 3.9 Globulin 3.2 Albumin/Globulin Ratio 1.2 Blood Type O POSITIVE Antibody Screen Negative BBK History Checked No verified bt - EKG Data EKG shows normal: Sinus rhythm Rate: Normal (Normal sinus with a rate of 70, no acute ST or T wave changes ) Assessment & Plan - Assessment and Plan (Free Text) Assessment: Assessment/plan: 68 YO female with PMHx of HTN, asthma/copd (interstitial lung disease), OA, a fib (s/p ablation) is admitted for asthma exacerbation. Asthma exacerbation -acute -CXR with no acute infiltrate noted, small nodules noted, mild vascular congestion (read by me); follow up official read -no leukocytosis noted, afebrile -c/w IV steriods, duonab, and O2 as needed -pulmonology consulted; follow up recs -c/w home meds Dehydration -mild elevation of BUN -IV fluid -f/w in AM HTN -chronic -c/w home meds -BP mildly elevated now, will give HS dose of Norvasc now OA -c/w home meds as needed -pain management as needed DVT prolx -Lovenox SC <Raudel Lara - Last Filed: 08/11/18 02:37> Results - Vital Signs Recent Vital Signs: Last Vital Signs Temp 98.6 F 08/11/18 01:33 Pulse 72 08/11/18 02:05 Resp 19 08/11/18 01:33 BP 170/98 H 08/11/18 02:05 Pulse Ox 93 L 08/11/18 01:33 - Labs Result Diagrams: 08/10/18 23:18 08/10/18 23:18 Labs: Laboratory Results - last 24 hr 08/10/18 08/10/18 08/10/18 23:18 23:18 23:18 WBC 8.6 RBC 4.22 Hgb 12.4 Hct 37.1 MCV 87.8 MCH 29.3 MCHC 33.3 RDW 14.6 H Plt Count 242 MPV 8.7 Neut % (Auto) 75.1 H Lymph % (Auto) 18.9 L [place] % (Auto) 5.2 Eos % (Auto) 0.4 Baso % (Auto) 0.4 Neut # (Auto) 6.4 Lymph # (Auto) 1.6 [place] # (Auto) 0.4 Eos # (Auto) 0.0 Baso # (Auto) 0.0 Sodium 140 Potassium 4.3 Chloride 103 Carbon Dioxide 29 Anion Gap 12 BUN 22 H Creatinine 0.7 Est GFR ( Amer) > 60 Est GFR (Non-Af Amer) > 60 Random Glucose 117 H Calcium 8.9 Phosphorus 3.9 Magnesium 2.2 Total Bilirubin 0.5 AST 24 ALT 20 Alkaline Phosphatase 86 Troponin I < 0.0120 NT-Pro-B Natriuret Pep 123 Total Protein 7.1 Albumin 3.9 Globulin 3.2 Albumin/Globulin Ratio 1.2 Blood Type O POSITIVE Antibody Screen Negative BBK History Checked No verified bt Attending/Attestation - Attestation I have personally seen and examined this patient.: Yes I have fully participated in the care of the patient.: Yes I have reviewed all pertinent clinical information: Yes Notes (Text): 08/11/18 02:18 I saw, examined and discussed this patient wit Dr Dc. I agree with her assessment and plan outlined. This is a 68 years old female with hx of Asthma, A Fib s/p ablation. She came to the ED because of worsening SOB. She received 2 courses of steroids within the prior 2 weeks but has failed to improve. In the ED she received Albuteral / Ipratropium with Methylprednisolone. She still has SOB with some improvement in the wheezes. We will place the patient under Observation and treat Asthmatic crisis with Duoneb, Solu-medrol and Levofloxacin. We will consult pulmonology Dr Hunter. Treat Hypertension, anticoagulant, Beta Maanda and Flecainide for the A Fib. Raudel Lara MD
[2018-08-11] MEDS ORDERED: Sodium Chloride 0.9% 500 ML IV SCH (02:00)
[2018-08-11 03:03] LABS: SQUAMOUS EPITHIAL 1 /hpf (0-5); URINE BILIRUBIN NEGATIVE (NEGATIVE); URINE BLOOD NEGATIVE (NEGATIVE); URINE CLARITY CLEAR (Clear); URINE COLOR STRAW (YELLOW); URINE GLUCOSE (UA) NEG (NEGATIVE); URINE LEUKOCYTE ESTERASE TRACE Leu/uL (Negative); URINE PROTEIN NEGATIVE (NEGATIVE); URINE UROBILINOGEN 0.2-1.0 mg/dL (0.2-1.0)
[2018-08-11] MEDS: Albuterol-Ipratrop 3 mg / 0.5 (3 ml) UD INH SCH ×3 (05:11→11:28)
[2018-08-11 06:27] LABS: BASO % 0.1 % (0.0-2.0); HEMOGLOBIN 12.6 g/dL (12.0-16.0); LYMPH # 0.8 K/uL (1.0-4.3); LYMPH % 9.6 % (20.0-40.0); MEAN CELL VOLUME 88.3 fl (81.0-99.0); MEAN CORPUSCULAR HGB CONC 32.8 g/dL (33.0-37.0); MEAN PLATELET VOLUME 8.4 fl (7.2-11.7); MONO % 0.4 % (0.0-10.0); NEUT # 7.6 K/uL (1.8-7.0); NEUT % 89.9 % (50.0-75.0); PLATELET COUNT 243 K/uL (130-400); RBC 4.34 Mil/uL (3.80-5.20); RED CELL DISTRIBUTION WIDTH 14.4 % (11.5-14.5); WHITE BLOOD COUNT 8.5 K/uL (4.8-10.8)
[2018-08-11 06:31] LABS: BLOOD UREA NITROGEN 19 mg/dl (7-17); CALCIUM 8.9 mg/dL (8.4-10.2); GFR NON-AFRICAN AMERICAN > 60
[2018-08-11 08:04] VITALS: BP 147/92; RESP 20; TEMP 98.5
[2018-08-11 08:26] LABS: BANDS 1 % (0-2); EOSINOPHIL 1 % (0-7); LYMPHOCYTE 18 % (20-50); NEUTROPHIL 80 % (42-75); PLATELET ESTIMATE NORMAL (NORMAL); TOTAL CELLS COUNTED 100
[2018-08-11 08:31] LABS: ANISOCYTOSIS SLIGHT; LARGE PLATELETS PRESENT; OVALOCYTES SLIGHT; POIKILOCYTOSIS SLIGHT
--- NOTE | 2018-08-11 08:50 | RAD ---
Date of service: 08/10/2018 HISTORY: sob COMPARISON: 04/06/2018 TECHNIQUE: 1 view obtained. FINDINGS: LUNGS: No active pulmonary disease. PLEURA: No significant pleural effusion identified, no pneumothorax apparent. CARDIOVASCULAR: There is presence of aortic atherosclerotic calcification on x-ray. Minimal cardiomegaly-similar mild central pulmonary vascular congestion suspect-slight increase conspicuity-may be due to differences in technique and summation of soft tissues due to patient's large body habitus. Tortuous thoracic aorta similar contour. OSSEOUS STRUCTURES: No significant abnormalities. VISUALIZED UPPER ABDOMEN: Normal. OTHER FINDINGS: None. IMPRESSION: No interval consolidation. Mild pulmonary venous congestion possibly slightly increased since prior exam versus increase conspicuity due to technical factors and body habitus as above. Correlate clinically
[2018-08-11] MEDS ORDERED: Metoprolol Succinate 100 mg XL Tab PO SCH (09:00)
[2018-08-11] MEDS ORDERED: Patient's Own Med (Fluticasone/Vilanterol [Breo Ellipta 200-25 Mcg Inh] 1 PUFF) IH SCH ×2 (09:00→13:00)
[2018-08-11] MEDS ORDERED: Enoxaparin 40 mg Syringe SC SCH (09:00)
[2018-08-11] MEDS ORDERED: MethylPREDNISolone 40 mg Vial IVP SCH (09:00)
--- NOTE | 2018-08-11 09:47 | CARD ---
APPROVED REPORT Date of service: 08/10/2018 EKG Measurement Heart [id number] <Conclusion> Normal sinus rhythm Normal ECG
--- NOTE | 2018-08-11 13:13 | CP.PCM.CON ---
History of Present Illness - History of Present Illness History of Present Illness: Pulmonary consult for a 68 y/o F, with multiple chronic medical condiitons, including COPD, Asthma, Emphysema, ILD. [facility] be [facility] for moderate SOB, onset 08/06/18, associated to cough, intermittent, productive clear thin secretion, non bleeding. Pt using Nebulizer Albuterol at home with no relief. Worsening symptoms: ALVAREZ, pain with coughing. Aggravated fcator: Exercise, ADL's. Pt denied: Fever, chills, n/v/d, abdominal pain, urinary symptoms, CP, palpitations, back pain, sick contact, recent travel out of [place]. CXR: No active pulmonary disease. EKG: Normal sinus rhythm. Review of Systems - Constitutional Constitutional: Other (negative) - EENT Eyes: Requires Corrective Lenses Ears: Other (negtaive) Nose/Mouth/Throat: Other (negative) - Cardiovascular Cardiovascular: Other (negative) - Respiratory Respiratory: Cough, Dyspnea, Dyspnea on Exertion, Pain with Coughing - Gastrointestinal Gastrointestinal: Other (negative) - Genitourinary Genitourinary: Other (negative) - Musculoskeletal Musculoskeletal: Arthralgias - Integumentary Integumentary: Other (negative) - Neurological Neurological: Other (negative) - Psychiatric Psychiatric: Other (negative) - Endocrine Endocrine: Other (negative) - Hematologic/Lymphatic Hematologic: Other (negative) Past Patient History - Past Medical History & Family History Past Medical History?: Yes Pertinent Family History: Unknown - Past Social History Smoking Status: Never Smoked Alcohol: None Drugs: Denies Home Situation {Lives}: Alone - CARDIAC Hx Cardiac Disorders: Yes Hx Atrial Fibrillation: Yes (s/p ablation) Hx Cardia Arrhythmia: Yes Hx Hypercholesterolemia: Yes Hx Hypertension: Yes - PULMONARY Hx Respiratory Disorders: Yes Hx Asthma: Yes Hx Chronic Obstructive Pulmonary Disease (COPD): Yes Hx Emphysema: Yes - NEUROLOGICAL Hx Neurological Disorder: No - HEENT Hx HEENT Problems: No - RENAL Hx Chronic Kidney Disease: No - ENDOCRINE/METABOLIC Hx Endocrine Disorders: Yes Hx Hyperthyroidism: Yes - HEMATOLOGICAL/ONCOLOGICAL Hx Blood Disorders: No Hx Human Immunodeficiency Virus (HIV): No - INTEGUMENTARY Hx Dermatological Problems: Yes Hx Psoriasis: Yes - MUSCULOSKELETAL/RHEUMATOLOGICAL Hx Musculoskeletal Disorders: Yes Hx Osteoarthritis: Yes - GASTROINTESTINAL Hx Gastrointestinal Disorders: Yes Hx Gastritis: Yes - GENITOURINARY/GYNECOLOGICAL Hx Genitourinary Disorders: No - PSYCHIATRIC Hx Psychophysiologic Disorder: No Hx Substance Use: No - SURGICAL HISTORY Hx Surgeries: Yes Hx Appendectomy: Yes Hx Section: Yes (x4) Hx Cholecystectomy: Yes Hx Hysterectomy: Yes Other/Comment: Thyroiod nodule resection . - ANESTHESIA Hx Anesthesia: Yes Hx Anesthesia Reactions: No Hx Malignant Hyperthermia: No Has any member of the family had a problem w/ anesthesia?: No Meds Home Medications: Home Medication List Medication Instructions Recorded Confirmed Type Albuterol HFA [Ventolin HFA 90 2 puff IH [id number] #1 inh 08/11/18 Rx mcg/actuation (8 g)] Albuterol/Ipratropium [Duoneb 3 3 ml INH RQ4 neb 08/11/18 Rx mg/0.5 mg (3 ml) UD] predniSONE [predniSONE Tab] 5 mg PO ASDIR #21 tab 08/11/18 Rx Allergies/Adverse Reactions: Allergies Allergy/AdvReac Type Severity Reaction Status Date / Time iodine Allergy ANAPHYLAXIS Verified 02/21/17 16:22 lactose Allergy ANGIOEDEMA Verified 02/21/17 16:22 Penicillins AdvReac ITCHING Verified 08/10/18 22:21 - Medications Medications: Current Medications Acetaminophen (Tylenol 325mg Tab) 650 mg PO Q6 PRN PRN Reason: Pain, Mild (1-3) Acetaminophen (Tylenol 325mg Tab) 650 mg PO Q6 PRN PRN Reason: Fever >100.4 F Albuterol (Ventolin Hfa 90 Mcg/Actuation (8 G)) 2 puff IH Q4H PRN PRN Reason: Shortness of Breath Albuterol/Ipratropium (Duoneb 3 Mg/0.5 Mg (3 Ml) Ud) 3 ml INH RQ4 ZOE Last Admin: 08/11/18 11:28 Dose: 3 ml Albuterol/Ipratropium (Duoneb 3 Mg/0.5 Mg (3 Ml) Ud) 3 ml INH RQ2 PRN PRN Reason: Shortness of Breath Amlodipine Besylate (Norvasc) 5 mg PO HS ZOE Enoxaparin Sodium (Lovenox) 40 mg SC DAILY ZOE; Protocol Last Admin: 08/11/18 08:34 Dose: 40 mg Home Med (Butalbital/Acetaminophen [Butalbital-Acetaminophn 50-325]) 1 tab PO Q4 PRN PRN Reason: Headache Last Admin: 08/11/18 05:10 Dose: 1 tab Home Med (Flecainide Acetate [Flecainide Acetate]) 150 mg PO Q12@1100,1900 [facility] Last Admin: 08/11/18 11:10 Dose: 150 mg Home Med (Fluticasone/Vilanterol [Breo Ellipta 200-25 Mcg Inh]) 1 puff IH DAILY [facility] Losartan Potassium (Cozaar) 100 mg PO DAILY@1700 [facility] Methylprednisolone (Solu-Medrol) 40 mg IVP Q12 [facility] Last Admin: 08/11/18 08:35 Dose: 40 mg Metoprolol Succinate (Toprol Xl) 100 mg PO DAILY [facility] Last Admin: 08/11/18 08:35 Dose: 100 mg Tramadol HCl (Ultram) 50 mg PO BID [facility] Last Admin: 08/11/18 08:33 Dose: 50 mg Physical Exam - Constitutional Appears: No Acute Distress - Head Exam Head Exam: NORMAL INSPECTION - Eye Exam Eye Exam: PERRL - ENT Exam ENT Exam: Normal Exam - Neck Exam Neck exam: Positive for: Normal Inspection - Respiratory Exam Respiratory Exam: Decreased Breath Sounds (at bases) - Cardiovascular Exam Cardiovascular Exam: REGULAR RHYTHM - GI/Abdominal Exam GI & Abdominal Exam: Normal Bowel Sounds, Soft - Extremities Exam Extremities exam: Positive for: normal inspection - Back Exam Back exam: NORMAL INSPECTION - Neurological Exam Neurological exam: Alert, Oriented x3 Additional comments: No motor/sensory deficit. - Psychiatric Exam Psychiatric exam: Normal Mood - Skin Skin Exam: Normal Color, Warm Results - Vital Signs Recent Vital Signs: Last Vital Signs Temp 98.5 F 08/11/18 08:04 Pulse 81 08/11/18 08:35 Resp 20 08/11/18 08:04 BP 147/92 H 08/11/18 08:35 Pulse Ox 94 L 08/11/18 08:04 denilson Saucedo - Labs Result Diagrams: 08/11/18 06:10 08/11/18 06:10 Labs: Laboratory Results - last 24 hr 08/10/18 08/10/18 08/10/18 23:18 23:18 23:18 WBC 8.6 RBC 4.22 Hgb 12.4 Hct 37.1 MCV 87.8 MCH 29.3 MCHC 33.3 RDW 14.6 H Plt Count 242 MPV 8.7 Neut % (Auto) 75.1 H Lymph % (Auto) 18.9 L Hopkins % (Auto) 5.2 Eos % (Auto) 0.4 Baso % (Auto) 0.4 Neut # (Auto) 6.4 Lymph # (Auto) 1.6 [place] # (Auto) 0.4 Eos # (Auto) 0.0 Baso # (Auto) 0.0 Neutrophils % (Manual) Band Neutrophils % Lymphocytes % (Manual) Monocytes % (Manual) Eosinophils % (Manual) Platelet Estimate Large Platelets Poikilocytosis (manual Anisocytosis (manual) Ovalocytes Sodium 140 Potassium 4.3 Chloride 103 Carbon Dioxide 29 Anion Gap 12 BUN 22 H Creatinine 0.7 Est GFR ( Amer) > 60 Est GFR (Non-Af Amer) > 60 Random Glucose 117 H Calcium 8.9 Phosphorus 3.9 Magnesium 2.2 Total Bilirubin 0.5 AST 24 ALT 20 Alkaline Phosphatase 86 Troponin I < 0.0120 NT-Pro-B Natriuret Pep 123 Total Protein 7.1 Albumin 3.9 Globulin 3.2 Albumin/Globulin Ratio 1.2 Urine Color Urine Clarity Urine pH Ur Specific [place] Urine Protein Urine Glucose (UA) Urine Ketones Urine Blood Urine Nitrate Urine Bilirubin Urine Urobilinogen Ur Leukocyte Esterase Urine RBC (Auto) Urine Microscopic WBC Ur Squamous Epith Cells Blood Type O POSITIVE Blood Type Confirm Antibody Screen Negative BBK History Checked No verified bt 08/11/18 08/11/18 08/11/18 02:30 06:10 06:10 WBC RBC Hgb Hct MCV MCH MCHC RDW Plt Count MPV Neut % (Auto) Lymph % (Auto) [place] % (Auto) Eos % (Auto) Baso % (Auto) Neut # (Auto) Lymph # (Auto) [place] # (Auto) Eos # (Auto) Baso # (Auto) Neutrophils % (Manual) Band Neutrophils % Lymphocytes % (Manual) Monocytes % (Manual) Eosinophils % (Manual) Platelet Estimate Large Platelets Poikilocytosis (manual Anisocytosis (manual) Ovalocytes Sodium Potassium Chloride Carbon Dioxide Anion Gap BUN Creatinine Est GFR ( Amer) Est GFR (Non-Af Amer) Random Glucose Calcium Phosphorus Magnesium Total Bilirubin AST ALT Alkaline Phosphatase Troponin I < 0.0120 NT-Pro-B Natriuret Pep Total Protein Albumin Globulin Albumin/Globulin Ratio Urine Color Straw Urine Clarity Clear Urine pH 6.0 Ur Specific [place] 1.016 Urine Protein Negative Urine Glucose (UA) Neg Urine Ketones Negative Urine Blood Negative Urine Nitrate Negative Urine Bilirubin Negative Urine Urobilinogen 0.2-1.0 Ur Leukocyte Esterase Trace Urine RBC (Auto) 3 Urine Microscopic WBC 3 Ur Squamous Epith Cells 1 Blood Type Blood Type Confirm O POSITIVE Antibody Screen BBK History Checked 08/11/18 08/11/18 06:10 06:10 WBC 8.5 RBC 4.34 Hgb 12.6 Hct 38.3 MCV 88.3 MCH 29.0 MCHC 32.8 L RDW 14.4 Plt Count 243 MPV 8.4 Neut % (Auto) 89.9 H Lymph % (Auto) 9.6 L [place] % (Auto) 0.4 Eos % (Auto) 0.0 Baso % (Auto) 0.1 Neut # (Auto) 7.6 H Lymph # (Auto) 0.8 L [place] # (Auto) 0.0 Eos # (Auto) 0.0 Baso # (Auto) 0.0 Neutrophils % (Manual) 80 H Band Neutrophils % 1 Lymphocytes % (Manual) 18 L Monocytes % (Manual) TEST NOT PERFORMED Eosinophils % (Manual) 1 Platelet Estimate Normal Large Platelets Present Poikilocytosis (manual Slight Anisocytosis (manual) Slight Ovalocytes Slight Sodium 138 Potassium 3.9 Chloride 103 Carbon Dioxide 26 Anion Gap 13 BUN 19 H Creatinine 0.6 L Est GFR ( Amer) > 60 Est GFR (Non-Af Amer) > 60 Random Glucose 170 H Calcium 8.9 Phosphorus Magnesium Total Bilirubin AST ALT Alkaline Phosphatase Troponin I NT-Pro-B Natriuret Pep Total Protein Albumin Globulin Albumin/Globulin Ratio Urine Color Urine Clarity Urine pH Ur Specific [place] Urine Protein Urine Glucose (UA) Urine Ketones Urine Blood Urine Nitrate Urine Bilirubin Urine Urobilinogen Ur Leukocyte Esterase Urine RBC (Auto) Urine Microscopic WBC Ur Squamous Epith Cells Blood Type Blood Type Confirm Antibody Screen BBK History Checked reviewed J.P. - EKG Data EKG comments: reviewed J.P. - Imaging and Cardiology Chest x-ray Status: Report reviewed by me (J.P.) Assessment & Plan (1) Asthma exacerbation Status: Acute Priority: High (2) Hx of emphysema Status: Chronic Priority: Medium - Assessment and Plan (Free Text) Plan: CX; No active disease, No SOB/ALVAREZ now, no chest congestion, Pt improved with Solu-Medrol IV, Duoneb and are rest of Tx, discussed with attendant Pt can be discharged home, see MAR. - Date & Time Date: 08/11/18
--- NOTE | 2018-08-11 13:20 | CP.PCM.DIS ---
<Ct Vazquez - Last Filed: 08/11/18 13:30> Provider - Provider Date of Admission: 08/10/18 23:57 Attending physician: Raudel Lara Consults: 08/10/18 23:59 Pulmonology Consult Routine Comment: DR RIGGS MADE AWARE AT 12AM Consulting Provider: Phillip Riggs Consulting Physician: Phillpi Riggs Reason for Consult: asthma exacerbation Time Spent in preparation of Discharge (in minutes): 30 Diagnosis - Discharge Diagnosis (1) Asthma exacerbation Status: Acute Comment: -acute. -CXR with no acute infiltrate noted, small nodules noted, mild vascular congestion (read by me); follow up official read. -no leukocytosis noted, afebrile. -s/p IV steriods, duonab, and O2 as needed. -pulmonology c onsulted- Dr. Riggs [facility] Course - Lab Results Lab Results: Most Recent Lab Values WBC 8.5 K/uL (4.8-10.8) 08/11/18 06:10 RBC 4.34 Mil/uL (3.80-5.20) 08/11/18 06:10 Hgb 12.6 g/dL (12.0-16.0) 08/11/18 06:10 Hct 38.3 % (34.0-47.0) 08/11/18 06:10 MCV 88.3 fl (81.0-99.0) 08/11/18 06:10 MCH 29.0 pg (27.0-31.0) 08/11/18 06:10 MCHC 32.8 g/dL (33.0-37.0) L 08/11/18 06:10 RDW 14.4 % (11.5-14.5) 08/11/18 06:10 Plt Count 243 K/uL (130-400) 08/11/18 06:10 MPV 8.4 fl (7.2-11.7) 08/11/18 06:10 Neut % (Auto) 89.9 % (50.0-75.0) H 08/11/18 06:10 Lymph % (Auto) 9.6 % (20.0-40.0) L 08/11/18 06:10 Burke % (Auto) 0.4 % (0.0-10.0) 08/11/18 06:10 Eos % (Auto) 0.0 % (0.0-4.0) 08/11/18 06:10 Baso % (Auto) 0.1 % (0.0-2.0) 08/11/18 06:10 Neut # (Auto) 7.6 K/uL (1.8-7.0) H 08/11/18 06:10 Lymph # (Auto) 0.8 K/uL (1.0-4.3) L 08/11/18 06:10 Burke # (Auto) 0.0 K/uL (0.0-0.8) 08/11/18 06:10 Eos # (Auto) 0.0 K/uL (0.0-0.7) 08/11/18 06:10 Baso # (Auto) 0.0 K/uL (0.0-0.2) 08/11/18 06:10 Neutrophils % (Manual) 80 % (42-75) H 08/11/18 06:10 Band Neutrophils % 1 % (0-2) 08/11/18 06:10 Lymphocytes % (Manual) 18 % (20-50) L 08/11/18 06:10 Monocytes % (Manual) TEST NOT PERFORMED 08/11/18 06:10 Eosinophils % (Manual) 1 % (0-7) 08/11/18 06:10 Platelet Estimate Normal (NORMAL) 08/11/18 06:10 Large Platelets Present 08/11/18 06:10 Poikilocytosis (manual Slight 08/11/18 06:10 Anisocytosis (manual) Slight 08/11/18 06:10 Ovalocytes Slight 08/11/18 06:10 Sodium 138 mmol/l (132-148) 08/11/18 06:10 Potassium 3.9 MMOL/L (3.6-5.0) 08/11/18 06:10 Chloride 103 mmol/L (98-107) 08/11/18 06:10 Carbon Dioxide 26 mmol/L (22-30) 08/11/18 06:10 Anion Gap 13 (10-20) 08/11/18 06:10 BUN 19 mg/dl (7-17) H 08/11/18 06:10 Creatinine 0.6 mg/dl (0.7-1.2) L 08/11/18 06:10 Est GFR ( Amer) > 60 08/11/18 06:10 Est GFR (Non-Af Amer) > 60 08/11/18 06:10 Random Glucose 170 mg/dL (65-105) H 08/11/18 06:10 Calcium 8.9 mg/dL (8.4-10.2) 08/11/18 06:10 Phosphorus 3.9 mg/dl (2.5-4.5) 08/10/18 23:18 Magnesium 2.2 MG/DL (1.6-2.3) 08/10/18 23:18 Total Bilirubin 0.5 mg/dl (0.2-1.3) 08/10/18 23:18 AST 24 U/L (14-36) 08/10/18 23:18 ALT 20 U/L (9-52) 08/10/18 23:18 Alkaline Phosphatase 86 U/L (38-126) 08/10/18 23:18 Troponin I < 0.0120 ng/mL (0.00-0.120) 08/11/18 06:10 NT-Pro-B Natriuret Pep 123 pg/ml (0-900) 08/10/18 23:18 Total Protein 7.1 G/DL (6.3-8.2) 08/10/18 23:18 Albumin 3.9 g/dL (3.5-5.0) 08/10/18 23:18 Globulin 3.2 gm/dL (2.2-3.9) 08/10/18 23:18 Albumin/Globulin Ratio 1.2 (1.0-2.1) 08/10/18 23:18 Urine Color Straw (YELLOW) 08/11/18 02:30 Urine Clarity Clear (Clear) 08/11/18 02:30 Urine pH 6.0 (5.0-8.0) 08/11/18 02:30 Ur Specific [place] 1.016 (1.003-1.030) 08/11/18 02:30 Urine Protein Negative mg/dL (NEGATIVE) 08/11/18 02:30 Urine Glucose (UA) Neg mg/dL (NEGATIVE) 08/11/18 02:30 Urine Ketones Negative mg/dL (NEGATIVE) 08/11/18 02:30 Urine Blood Negative (NEGATIVE) 08/11/18 02:30 Urine Nitrate Negative (NEGATIVE) 08/11/18 02:30 Urine Bilirubin Negative (NEGATIVE) 08/11/18 02:30 Urine Urobilinogen 0.2-1.0 mg/dL (0.2-1.0) 08/11/18 02:30 Ur Leukocyte Esterase Trace Eileen/uL (Negative) 08/11/18 02:30 Urine RBC (Auto) 3 /hpf (0-3) 08/11/18 02:30 Urine Microscopic WBC 3 /hpf (0-5) 08/11/18 02:30 Ur Squamous Epith Cells 1 /hpf (0-5) 08/11/18 02:30 Blood Type O POSITIVE 08/10/18 23:18 Blood Type Confirm O POSITIVE 08/11/18 06:10 Antibody Screen Negative 08/10/18 23:18 BBK History Checked No verified bt 08/10/18 23:18 - Hospital Course Hospital Course: 68 yo female with PMHx of HTN, asthma/copd (interstitial lung disease), OA, a fib (s/p ablation) was admitted for asthma exacerbation. Patient was admitted to med/surg, afebrile, saturating 96% on room air, no leukocytosis and no events during her stay. Chest Xray demonstrated no active pulmonary disease. Dr. Riggs was consulted for pulmonolgy. Patient cleared to go home with precriptions. Will follow up with her PMD, Dr. Riggs outpatient. Discharge Exam - Head Exam Head Exam: ATRAUMATIC, NORMOCEPHALIC - Eye Exam Eye Exam: Normal appearance - ENT Exam ENT Exam: Mucous Membranes Moist - Respiratory Exam Respiratory Exam: Clear to PA & Lateral, NORMAL BREATHING PATTERN, UNREMARKABLE. absent: Accessory Muscle Use, Chest Wall Tenderness, Decreased Breath Sounds, Prolonged Expiratory Phase, Rales, Rhonchi, Wheezes, Respiratory Distress, Stridor - Cardiovascular Exam Cardiovascular Exam: REGULAR RHYTHM, +S1, +S2 - GI/Abdominal Exam GI & Abdominal Exam: Normal Bowel Sounds, Soft, Unremarkable. absent: Diminished Bowel Sounds, Distended, Firm, Guarding, Hernia, Rebound, Rigid, Tenderness - Neurological Exam Neurological exam: Alert, Oriented x3 - Psychiatric Exam Psychiatric exam: Normal Affect, Normal Mood - Skin Skin Exam: Dry, Intact, Normal Color, Warm Discharge Plan - Discharge Medications Prescriptions: Albuterol HFA [Ventolin HFA 90 mcg/actuation (8 g)] 2 puff IH [id number] #1 inh predniSONE [predniSONE Tab] 5 mg PO ASDIR #21 tab - Follow Up Plan Condition: GOOD Disposition: HOME/ ROUTINE Patient education suggested?: Yes Instructions: Asthma, Adult (DC) Additional Instructions: follow up with your primary MD 1 week Referrals: Phillip Riggs MD [Staff Provider] - Odell Dorman MD [Staff Provider] - <Gaby Shukla - Last Filed: 08/11/18 16:56> Provider - Provider Date of Admission: 08/10/18 23:57 Attending physician: Raudel Lara Consults: 08/10/18 23:59 Pulmonology Consult Routine Comment: DR RIGGS MADE AWARE AT 12AM Consulting Provider: Phillip Riggs Consulting Physician: Phillip Riggs Reason for Consult: asthma exacerbation Hospital Course - Lab Results Lab Results: Most Recent Lab Values WBC 8.5 K/uL (4.8-10.8) 08/11/18 06:10 RBC 4.34 Mil/uL (3.80-5.20) 08/11/18 06:10 Hgb 12.6 g/dL (12.0-16.0) 08/11/18 06:10 Hct 38.3 % (34.0-47.0) 08/11/18 06:10 MCV 88.3 fl (81.0-99.0) 08/11/18 06:10 MCH 29.0 pg (27.0-31.0) 08/11/18 06:10 MCHC 32.8 g/dL (33.0-37.0) L 08/11/18 06:10 RDW 14.4 % (11.5-14.5) 08/11/18 06:10 Plt Count 243 K/uL (130-400) 08/11/18 06:10 MPV 8.4 fl (7.2-11.7) 08/11/18 06:10 Neut % (Auto) 89.9 % (50.0-75.0) H 08/11/18 06:10 Lymph % (Auto) 9.6 % (20.0-40.0) L 08/11/18 06:10 Burke % (Auto) 0.4 % (0.0-10.0) 08/11/18 06:10 Eos % (Auto) 0.0 % (0.0-4.0) 08/11/18 06:10 Baso % (Auto) 0.1 % (0.0-2.0) 08/11/18 06:10 Neut # (Auto) 7.6 K/uL (1.8-7.0) H 08/11/18 06:10 Lymph # (Auto) 0.8 K/uL (1.0-4.3) L 08/11/18 06:10 Burke # (Auto) 0.0 K/uL (0.0-0.8) 08/11/18 06:10 Eos # (Auto) 0.0 K/uL (0.0-0.7) 08/11/18 06:10 Baso # (Auto) 0.0 K/uL (0.0-0.2) 08/11/18 06:10 Neutrophils % (Manual) 80 % (42-75) H 08/11/18 06:10 Band Neutrophils % 1 % (0-2) 08/11/18 06:10 Lymphocytes % (Manual) 18 % (20-50) L 08/11/18 06:10 Monocytes % (Manual) TEST NOT PERFORMED 08/11/18 06:10 Eosinophils % (Manual) 1 % (0-7) 08/11/18 06:10 Platelet Estimate Normal (NORMAL) 08/11/18 06:10 Large Platelets Present 08/11/18 06:10 Poikilocytosis (manual Slight 08/11/18 06:10 Anisocytosis (manual) Slight 08/11/18 06:10 Ovalocytes Slight 08/11/18 06:10 Sodium 138 mmol/l (132-148) 08/11/18 06:10 Potassium 3.9 MMOL/L (3.6-5.0) 08/11/18 06:10 Chloride 103 mmol/L (98-107) 08/11/18 06:10 Carbon Dioxide 26 mmol/L (22-30) 08/11/18 06:10 Anion Gap 13 (10-20) 08/11/18 06:10 BUN 19 mg/dl (7-17) H 08/11/18 06:10 Creatinine 0.6 mg/dl (0.7-1.2) L 08/11/18 06:10 Est GFR ( Amer) > 60 08/11/18 06:10 Est GFR (Non-Af Amer) > 60 08/11/18 06:10 Random Glucose 170 mg/dL (65-105) H 08/11/18 06:10 Calcium 8.9 mg/dL (8.4-10.2) 08/11/18 06:10 Phosphorus 3.9 mg/dl (2.5-4.5) 08/10/18 23:18 Magnesium 2.2 MG/DL (1.6-2.3) 08/10/18 23:18 Total Bilirubin 0.5 mg/dl (0.2-1.3) 08/10/18 23:18 AST 24 U/L (14-36) 08/10/18 23:18 ALT 20 U/L (9-52) 08/10/18 23:18 Alkaline Phosphatase 86 U/L (38-126) 08/10/18 23:18 Troponin I < 0.0120 ng/mL (0.00-0.120) 08/11/18 06:10 NT-Pro-B Natriuret Pep 123 pg/ml (0-900) 08/10/18 23:18 Total Protein 7.1 G/DL (6.3-8.2) 08/10/18 23:18 Albumin 3.9 g/dL (3.5-5.0) 08/10/18 23:18 Globulin 3.2 gm/dL (2.2-3.9) 08/10/18 23:18 Albumin/Globulin Ratio 1.2 (1.0-2.1) 08/10/18 23:18 Urine Color Straw (YELLOW) 08/11/18 02:30 Urine Clarity Clear (Clear) 08/11/18 02:30 Urine pH 6.0 (5.0-8.0) 08/11/18 02:30 Ur Specific [place] 1.016 (1.003-1.030) 08/11/18 02:30 Urine Protein Negative mg/dL (NEGATIVE) 08/11/18 02:30 Urine Glucose (UA) Neg mg/dL (NEGATIVE) 08/11/18 02:30 Urine Ketones Negative mg/dL (NEGATIVE) 08/11/18 02:30 Urine Blood Negative (NEGATIVE) 08/11/18 02:30 Urine Nitrate Negative (NEGATIVE) 08/11/18 02:30 Urine Bilirubin Negative (NEGATIVE) 08/11/18 02:30 Urine Urobilinogen 0.2-1.0 mg/dL (0.2-1.0) 08/11/18 02:30 Ur Leukocyte Esterase Trace Eileen/uL (Negative) 08/11/18 02:30 Urine RBC (Auto) 3 /hpf (0-3) 08/11/18 02:30 Urine Microscopic WBC 3 /hpf (0-5) 08/11/18 02:30 Ur Squamous Epith Cells 1 /hpf (0-5) 08/11/18 02:30 Blood Type O POSITIVE 08/10/18 23:18 Blood Type Confirm O POSITIVE 08/11/18 06:10 Antibody Screen Negative 08/10/18 23:18 BBK History Checked No verified bt 08/10/18 23:18 Attending/Attestation - Attestation I have personally seen and examined this patient.: Yes I have fully participated in the care of the patient.: Yes I have reviewed all pertinent clinical information, including history, physical exam and plan: Yes Notes (Text): Asthma/COPD exacerbation ( History of Mild INtermittent Asthma) Interstitial Lung Disease Acute Bronchitis HTN -Pt received IV Solumedrol and Duoneb tx - Pt's sxs improved - also received IV Levaquin - Pulmonary consulted- cleared pt for discharge home on PO Prednisone and pt will be followed up by DR Riggs as outpt
[2018-08-12 15:56] VITALS: PULSE 70; O2SAT 97
== END 2018-08-11 14:52 | disposition home or self-care (01) ==
LOC: H.ER 22:13 → H.ERHOLD 23:57 → H.MEDSURG1 08-11 01:15
PROVIDERS: ADMIT Internal Medicine; ATTEND Internal Medicine
DX: J45.21 Mild intermittent asthma with (acute) exacerbation (principal); Z88.0 Allergy status to penicillin; Z91.041 Radiographic dye allergy status; Z91.011 Allergy to milk products; E78.00 Pure hypercholesterolemia, unspecified; I10 Essential (primary) hypertension; I48.91 Unspecified atrial fibrillation; J43.9 Emphysema, unspecified; K29.70 Gastritis, unspecified, without bleeding; M19.90 Unspecified osteoarthritis, unspecified site; E86.0 Dehydration; J84.9 Interstitial pulmonary disease, unspecified; J20.9 Acute bronchitis, unspecified
CPT/HCPCS: 36415; 71045; 80048; 80053; 81003; 83735; 83880; 84100; 84484; 85025; 86850; 86900; 93005; 94640; 96361; 96372; 96374; 96375; 96376; 99284; G0378; J1650; J2920; J2930; J7030